=== PATIENT | female | born 1990 | race Caucasian/White ===

== ENCOUNTER 2017-08-09 22:22 | Inpatient (IN) | payer MEDICAID ==
[~2017-08-09] VITALS: Ht 175.3 cm; Wt 53.8 kg
[~2017-08-09 22:22] MED LIST: ACYCLOVIR800 MG PO; AMOXICILLIN 50500 MG PO; AMOXIL500 MG PO; CELEXA10 MG PO; CIPRO 250MG TA250 MG PO; CIPROFLOXACIN500 MG PO; CLONIDINE 0.2M0.2 MG PO; KEFLEX 500MG.500 MG PO; LORTAB 5/500 501 TAB PO; LORTAB 500 MG-71 TAB PO; MOTRIN800 MG PO; NOMEDS; PENICILLIN VK500 M1 PO; PERMETHRIN5% TP; PHENERGAN 12.12.5 M1 PO; PHENERGAN 25MG.25 M1 PO; PHENERGAN25 M3 PO; SEPTRA DS 800 M1 TAB PO; TORADOL10 M2 PO; TORADOL10 MG PO; TRAMADOL 50MG T50 MG PO; ULTRAM 50 MG TA50 MG PO; ULTRAM50 MG PO; VISTARIL25 M1 PO; VOLTAREN75 MG PO
[2017-08-09 22:26] VITALS: BP 119/54
--- NOTE | 2017-08-09 22:43 | Emergency Room Report ---
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 N Clinical Suspician of Infection? N Mental Status: 1 - Regular (Normal Baseline) Sepsis Risk:Low Sepsis Risk Have you (or family members/close friends) recently traveled outside the [place]? N If Yes, where/when: Have you had exposure to infectious disease within the past month? N TB? Other? Specify: Source patient, RN notes reviewed, family, old records Exam Limitations no limitations Comment rt sided buttock abscess which has progressed over the last few days despite po clindamycin at home- old rx -denied prev mrsa but does use iv drugs - denied dm Cardiac Chest Pain Chest pain indicative of cardiac No Timing/Duration this evening Severity moderate ALLERGIES Coded Allergies: No Known Allergies (10/02/15) Home Medications Reported Medications No Known Home Medications History Medical History General CAD? No Angina: No SC: No Hypertension? No Hyperlipidemia? No CHF? No DVT? No PE? No COPD? No Asthma? No Anemia? No GERD? No Gastric ulcers? No GI Bleed? No Hernia? No Thyroid Problems? No Hypothyroidism? No CVA? No Seizures? No Diabetes? No Renal Insuffiency? No End Stage Renal Disease? No UTI? No Stones? No BPH? No GB Disease: No Nephritic Syndrome? No Asplenia? No Hepatitis? No Sickle Cell Disease? No Arthritis? No Migraines? No Cataracts? No Glaucoma? No MRSA? No HIV? No TB? No Anxiety? Yes Depression? Yes Cancer? No More? 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 Respiratory denies cough, denies shortness of breath, denies wheezing Cardiovascular denies chest pain, denies syncope Gastrointestinal see HPI, denies diarrhea, nausea, denies vomiting Genitourinary denies: dysuria, frequency, hesitancy, hematuria. Musculoskeletal denies back pain, denies joint pain, denies joint swelling, denies neck pain Skin see HPI, denies rash, other Psychiatric/Neurological denies anxiety Physical Exam Vital Signs Vital Signs Date Time Temp Pulse Resp B/P Pulse O2 O2 Flow FiO2 Ox Delivery Rate 08/09 2226 98.2 76 16 119/54 98 - WBC >12,000 or <4,000 or 10% bands? 2 or more SIRS Criteria Met? B/P:119/54 MAP:75 Creatinine >2.0? UA output<0.5ml/kg/hr for 2 hrs? Platelet count >100,000? Lactate >2.0mmol/1? INR >1.2 or PTT > than 60 sec? Evidence of Organ Dysfunction? Provider documented clinical suspician of infection? N Sepsis Criteria Count: 0 Sepsis Risk: Low Sepsis Risk General Appearance no apparent distress Eye Exam - bilateral eye PERRL, bilateral eye EOMI Ear, Nose, Throat normal ENT inspection Neck supple Respiratory Status No: respiratory distress. Lung Sounds bilateral: lungs clear. 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 No Results/Orders Laboratory Tests 08/09/172234: Lactic Acid Pending, WBC 9.4, RBC 4.21, Hgb 13.3, Hct 39.4, MCV 93.5, RDW 15.1, Plt Count 224, Gran % 70.5, Gran # 6.6, Lymphocytes % 24.1, Monocytes % 5.4, Lymphocytes # 2.3, Monocytes # 0.5, PUBS MCHC 33.8 08/09/172234: Sodium Pending, Potassium Pending, Chloride Pending, Carbon Dioxide Pending, BUN Pending, Creatinine Pending, Estimated Creat Clear Pending, Estimated GFR (MDRD) Pending, Glucose Pending, Calcium Pending, Total Bilirubin Pending, AST Pending, ALT Pending, Alkaline Phosphatase Pending, Total Protein Pending, Albumin Pending, Globulin Pending, Albumin/Globulin Ratio Pending, ESR Pending, MCH 31.6 H, Opiates Screen Pending, Urine Methadone Screen Pending, Barbiturates Pending , Phencyclidine Screen Pending, Amphetamines Screen Pending, Benzodiazepines Screen Pending, Cocaine Screen Pending, Marijuana (THC) Screen Pending, Urine Color Pending, Urine Appearance Pending, Urine pH Pending, Ur Specific [place] Pending Current Medication Orders Sig/Tameka Start time Last Medication Dose Route Stop Time Status Admin Ketorolac 30 MG ONCE ONE 08/09 2300 DC Tromethamine IV 08/09 230 Miscellaneous 1 EACH CONSULT PHARMACY 08/09 230 AC Information * 08/10 1050 Sodium Chloride 1,000 ML .Q4H 08/09 2300 AC IV 08/10 0259 Sodium Chloride 10 ML PRN PRN 08/09 2300 AC IV 08/10 2250 Vancomycin HCl 1,250 MG ONCE ONE 08/09 2300 CKDr Sodium Chloride 250 ML IV 08/10 0059 Ketorolac 0 .STK-MED ONE 08/09 2254 DC Tromethamine .ROUTE Sodium Chloride 250 ML .STK-MED ONE 08/09 225 DC IV Sodium Chloride 1,000 ML .STK-MED ONE 08/09 225 DC IV Vancomycin HCl 0 .STK-MED ONE 08/09 225 DC .ROUTE Sodium Chloride 10 ML PRN PRN 08/09 224 AC IV 08/10 223 Orders Procedure Date/time Status URINALYSIS/COMPLETE 08/09 2246 Active URINE 08/09 2246 Active SED RATE 08/09 2246 Active DRUG ABUSE SCREEN (TRIAGE) 08/09 2246 Active C-REACTIVE PROTEIN 08/09 2246 Active CULTURE, WOUND 08/09 2233 Active IV SALINE LOCK 08/09 2232 Active CULTURE, BLOOD 08/09 2232 Active LACTIC ACID 08/09 2232 Active CBC WITH AUTO DIFF 08/09 2232 Complete CHEM 12 PROFILE 08/09 2232 Active Departure Departure Time of Disposition 2241 Disposition Still a Patient Clinical Impression Primary Impression: Abscess of buttock, right Secondary Impressions: Heroin use Condition STABLE Referrals Shanita PASCUAL,Jt discussed with dr devlin Prescriptions Current Visit Scripts No Known Home Medications ED Critical Care Critical Care No at 2304
[2017-08-09 23:00] LABS: HEMOGLOBIN 13.3 g/dL (12.2-16.2); LYMPH % 24.1 % (10-50.0)
[2017-08-09 23:01] LABS: LYMPH # 2.3 K/mm3 (0.7-4.5)
[2017-08-09 23:05] LABS: URINE BILIRUBIN - DIPSTICK NEGATIVE (NEG); URINE BLOOD NEGATIVE (NEG)
[2017-08-09 23:25] LABS: AMPHETAMINES/METAMPHETAMINES NEGATIVE ng/mL (<1000)
[2017-08-09 23:36] VITALS: BP 116/64; BP 128/79
[2017-08-10] VITALS (17 sets, daily range): BP systolic 98–134; BP diastolic 46–106
[2017-08-10 06:38] LABS: HEMOGLOBIN 13.1 g/dL (12.2-16.2)
[2017-08-10 06:39] LABS: LYMPH # 2.4 K/mm3 (0.7-4.5); LYMPH % 35.3 % (10-50.0)
--- NOTE | 2017-08-10 08:12 | PHARMACY CLINIC NOTE ---
Patient Demographics Patient Demographics Admission date: 08/09/17 Date: 08/10/17 Time: 0811 Allergies Coded Allergies: No Known Allergies (10/02/15) HEIGHT- FT: 5 IN: 9.00 K.779 VTE General Information Labs: Laboratory Tests 08/10 08/09 0615 2235 Hematology Hgb (12.2 - 16.2 g/dL) 13.1 13.3 Hct (37.0 - 47.0 %) 38.8 39.4 Plt Count (142 - 424 K/mm3) 226 224 Disclaimer The following section includes nursing documentation that has been pulled in for pharmacy review. Patient's VTE score: 0 Patient's VTE Risk: VERY LOW RISK Clinical trial participant? No VTE prophylaxis [id number] VTE prophylaxis ordered? Yes Type of prophylaxis/treatment: BRIDGER at 0811
--- NOTE | 2017-08-10 08:58 | CONSULT NOTE ---
Standard Demographics Patient Demo Date of Consultation: 08/10/17 Referring Provider: Jt Diehl MD Reason for Consultation: abscess PRIMARY DIAGNOSIS: ABSCESS OF RIGHT BUTTOCK Allergies: Coded Allergies: No Known Allergies (10/02/15) History of Present Illness Chief Complaint: Sore place on the RIGHT buttock History of Present Illness: 27-year-old white female. Admitted history of IV drug use and methamphetamine use. Presented to the emergency department yesterday evening with a one-week history of swelling tender knot in the upper RIGHT gluteal region. Admitted for inpatient management and surgical consultation. Past Medical History Denies: diabetes mellitus. Surgical History Previous Surgery?Y WISDOM TEETH Allergies Coded Allergies: No Known Allergies (10/02/15) Medications: Reported Medications No Known Home Medications Smoking Hx Tobacco: Yes Smoker: Current Every Day Smoker Type: Cigarettes Packs/day: < 1 Pack Are you/the child exposed to second-hand smoke: Yes Alcohol Alcohol: No Hx of Drug Use Drug Use? Yes Drug(s) of Choice: heroin Review of Systems Constitutional Positive for: weak. No: chills. Skin Positive for: swelling. Immune/allergy No: anaphalaxis. Eyes No: vision loss. ENT No: hearing loss. Respiratory No: shortness of air. Cardiovascular No: chest pain. GI No: hematemeis. (female) No: pelvic pain. Musculoskeletal No: extremity swelling. Heme No: bleeding. Endocrine No: cold intolerance. Neurological No: change in LOC. Physical Exam Exam General appearance no acute distress Respiratory clear to auscultation Cardiovascular regular rate and rhythm Findings/Data On the RIGHT gluteal region superiorly to the RIGHT of the cleft there is some excoriated superficial tissue. No fluctuance. Erythema for several centimeters. However palpation revealed a rather large area of induration. This is quite tender. Plan Plan: She has soft tissue infection of the RIGHT gluteal region with probable abscess. No evidence of any pilonidal disease. Plan for incision and drainage. at 0899
--- NOTE | 2017-08-10 09:12 | HISTORY AND PHYSICAL REPORT ---
History and Physical (FCA) Date of admission: 08/09/17 Chief complaint: Right Buttock Abscess History: History of Present Illness: Ms. Díaz is a 27yo WF with history of IVDA. She presented to the [facility] ED after several days of right buttock pain, redness, and swelling. She was unsure if she had run a fever in days prior. She reported that she had "popped" the area a few days ago with some subsequent drainage. She also reported that she had been taking an old rx of clindamycin at home without improvement. A friend who accompanied the patient also noted that she has experienced significant weight loss over the past few weeks. The case was discussed with Dr. Diehl and she was admitted for IV antibiotics. Past Medical History: Medical History: CAD? No Angina: No ID: No Hypertension? No Hyperlipidemia? No CHF? No DVT? No PE? No COPD? No Asthma? No Anemia? No GERD? No Gastric ulcers? No GI Bleed? No Hernia? No Thyroid Problems? No Hypothyroidism? No CVA? No Seizures? No Diabetes? No Renal Insuffiency? No UTI? No Stones? No BPH? No GB Disease: No Nephritic Syndrome? No Asplenia? No Hepatitis? No Sickle Cell Disease? No Arthritis? No Migraines? No Cataracts? No Glaucoma? No MRSA? No HIV? No TB? No Anxiety? Yes Depression? Yes Cancer? No More? No Additional hx: IV drug abuse Heroin use Surgical history: Previous Surgery? 1. WISDOM TEETH Medications: Reported Medications No Known Home Medications Allergies: Coded Allergies: No Known Allergies (10/02/15) Family History: Family history: Negative for: CAD, DM, HTN, cancer, stroke. Social History: Smoking Hx Tobacco: Yes Smoker: Current Every Day Smoker Type: Cigarettes Packs/day: < 1 Pack Are you exposed to second hand Yes Alcohol: Alcohol: No Hx of Drug Use: Drug Use? Yes Drug(s) of Choice: heroin Patien't marital status is: single Patient's support system is: poor Patient's occupation: unemployed Recent travel: none Review of Systems: Patient unresponsive? No Constitutional Positive for: recent weight loss. No: chills, malaise. ENT No: nasal congestion, sore throat. Cardiovascular No: HOLLIDAY, chest pain, palpitations. Respiratory No: dyspnea on exertion, shortness of air, non-productive, productive cough ( sputum). GI Positive for: rectal pain (right buttock). No: abdominal pain, constipation, diarrhea, nausea, vomitting. (female) No: frequency, hematuria, pelvic pain, urgency. Skin Positive for: swelling. No: bruising, itching. Neurological No: confusion, dizziness, syncope, vision change. Immune/allergy No: itching. Eyes No: blurry vision, discharge, vision loss. Musculoskeletal No: extremity pain, extremity swelling, myalgias. Heme No: bleeding, bruising. Psychiatric No: confused, change in mental status. Physical Exam: Vital signs: Laboratory Tests 08/10/17 0615: Sodium 138, Potassium 3.2 L, Chloride 107, Carbon Dioxide 25, BUN 6 L, Creatinine 0.6, Estimated Creat Clear 120, Estimated GFR (MDRD) 120, Glucose 98, Calcium 8.6, WBC 6.8, RBC 4.14 L, Hgb 13.1, Hct 38.8, MCV 93.7, RDW 14.5, Plt Count 226, Gran % 58.1, Gran # 4.0, Lymphocytes % 35.3, Monocytes % 6.6, Lymphocytes # 2.4, Monocytes # 0.4, PUBS MCHC 33.8, MCH 31.6 H 08/09/172234: Lactic Acid 0.6, WBC 9.4, RBC 4.21, Hgb 13.3, Hct 39.4, MCV 93.5, RDW 15.1, Plt Count 224, Gran % 70.5, Gran # 6.6, Lymphocytes % 24.1, Monocytes % 5.4, Lymphocytes # 2.3, Monocytes # 0.5, PUBS MCHC 33.8 08/09/172234: Sodium 134 L, Potassium 3.3 L, Chloride 101, Carbon Dioxide 27, BUN 5 L, Creatinine 0.7, Estimated Creat Clear 112, Estimated GFR (MDRD) 100, Glucose 82, Calcium 8.9, Total Bilirubin 0.6, AST 27, ALT 36, Alkaline Phosphatase 79, Total Protein 7.3, Albumin 3.3 L, Globulin 4.0 H, Albumin/Globulin Ratio 0.8 L, ESR 37 H, MCH 31.6 H, Opiates Screen NEGATIVE, Urine Methadone Screen NEGATIVE, Barbiturates NEGATIVE, Phencyclidine Screen NEGATIVE, Amphetamines Screen NEGATIVE, Benzodiazepines Screen NEGATIVE, Cocaine Screen NEGATIVE, Marijuana ( THC) Screen POSITIVE H, Urine Color YELLOW, Urine Appearance CLEAR, Urine pH 7.0, Ur Specific [place] <= 1.005, Urine Protein NEGATIVE, Urine Ketones NEGATIVE, Urine Blood NEGATIVE, Urine Nitrate NEGATIVE, Urine Bilirubin NEGATIVE , Urine Urobilinogen 0.2, Ur Leukocyte Esterase NEGATIVE, Urine WBC 3-5, Ur Squamous Epith Cells 5-10, Urine Bacteria 1+, Urine Glucose NEGATIVE Microbiology 08/09 2235 BLOOD: Anaerobic Blood Culture - RECD 08/09 2235 BLOOD: Aerobic Blood Culture - RECD 08/09 2232 DRAINAGE: Wound Culture - RECD 08/09 2232 BLOOD: Anaerobic Blood Culture - CAN Cancelled: DO NOT NEED PER MD 08/09 2232 BLOOD: Aerobic Blood Culture - CAN Cancelled: DO NOT NEED PER MD Vital Signs Date Time Temp Pulse Resp B/P Pulse O2 O2 Flow FiO2 Ox Delivery Rate 08/10 0828 20 08/10 0818 97.8 90 20 120/53 99 ROOM AIR 08/10 0800 97.8 51 20 120/53 99 ROOM AIR 08/10 0438 74 20 107/46 100 ROOM AIR 08/10 0205 98.5 96 22 128/79 100 ROOM AIR 08/10 0121 16 08/09 2336 70 08/09 233 98.5 96 16 128/79 08/09 2336 98 ROOM AIR 08/09 2334 98.2 70 16 116/64 98 08/09 2309 16 08/09 222 98.2 76 16 119/54 98 1ST Vital Signs Result Date Time Pulse Ox 98 08/09 2226 B/P 119/54 08/09 2226 Temp 98.2 08/09 222 Pulse 76 08/09 222 Resp 16 08/09 2226 O2 Delivery ROOM AIR 08/09 2336 Exam: General appearance: no acute distress, arouses to voice, answers questions appropriately, drifts back to sleep quickly Eyes: anicteric, PERRLA ENT: mucous membranes moist, pharynx normal, nares patent Neck: non-tender, supple, no LAD Cardiovascular: regular rate & rhythm, normal peripheral pulses Respiratory: CTAB A&P ABD: non-distended, no rebound, soft, no tenderness, no guarding, no organomegaly, no palpable mass, bowel sounds present Extremities: moves all, no peripheral edema, warm, no calf tenderness Skin: 2-3 cm area of erythema and induration with central scabbing on right buttock at superior aspect of gluteal cleft which is warm and ttp Neuro: oriented, speech clear, no focal deficit Lab data: Labs: Laboratory Tests 08/10/1715: Sodium 138, Potassium 3.2 L, Chloride 107, Carbon Dioxide 25, BUN 6 L, Creatinine 0.6, Estimated Creat Clear 120, Estimated GFR (MDRD) 120, Glucose 98, Calcium 8.6, WBC 6.8, RBC 4.14 L, Hgb 13.1, Hct 38.8, MCV 93.7, RDW 14.5, Plt Count 226, Gran % 58.1, Gran # 4.0, Lymphocytes % 35.3, Monocytes % 6.6, Lymphocytes # 2.4, Monocytes # 0.4, PUBS MCHC 33.8, MCH 31.6 H 08/09/172234: Lactic Acid 0.6, WBC 9.4, RBC 4.21, Hgb 13.3, Hct 39.4, MCV 93.5, RDW 15.1, Plt Count 224, Gran % 70.5, Gran # 6.6, Lymphocytes % 24.1, Monocytes % 5.4, Lymphocytes # 2.3, Monocytes # 0.5, PUBS MCHC 33.8 08/09/172234: Sodium 134 L, Potassium 3.3 L, Chloride 101, Carbon Dioxide 27, BUN 5 L, Creatinine 0.7, Estimated Creat Clear 112, Estimated GFR (MDRD) 100, Glucose 82, Calcium 8.9, Total Bilirubin 0.6, AST 27, ALT 36, Alkaline Phosphatase 79, Total Protein 7.3, Albumin 3.3 L, Globulin 4.0 H, Albumin/Globulin Ratio 0.8 L, ESR 37 H, MCH 31.6 H, Opiates Screen NEGATIVE, Urine Methadone Screen NEGATIVE, Barbiturates NEGATIVE, Phencyclidine Screen NEGATIVE, Amphetamines Screen NEGATIVE, Benzodiazepines Screen NEGATIVE, Cocaine Screen NEGATIVE, Marijuana ( THC) Screen POSITIVE H, Urine Color YELLOW, Urine Appearance CLEAR, Urine pH 7.0, Ur Specific [place] <= 1.005, Urine Protein NEGATIVE, Urine Ketones NEGATIVE, Urine Blood NEGATIVE, Urine Nitrate NEGATIVE, Urine Bilirubin NEGATIVE , Urine Urobilinogen 0.2, Ur Leukocyte Esterase NEGATIVE, Urine WBC 3-5, Ur Squamous Epith Cells 5-10, Urine Bacteria 1+, Urine Glucose NEGATIVE Microbiology 08/09 2235 BLOOD: Anaerobic Blood Culture - RECD 08/09 2235 BLOOD: Aerobic Blood Culture - RECD 08/09 2232 DRAINAGE: Wound Culture - RECD 08/09 2232 BLOOD: Anaerobic Blood Culture - CAN Cancelled: DO NOT NEED PER MD 08/09 2232 BLOOD: Aerobic Blood Culture - CAN Cancelled: DO NOT NEED PER MD Diagnosis(es): 1. Abscess of buttock, right Status: Acute 2. Substance abuse 3. IV drug abuse 4. Heroin use 5. Underweight Plan: Will continue IV vancomycin, check HIV and Hepatitis panel, consult SW to provide drug treatment information. (KATHERINE BUSTILLO APRN) Diagnosis(es): 1. Abscess of buttock, right Status: Acute 2. Substance abuse 3. IV drug abuse 4. Heroin use 5. Underweight Plan: Patient seen and agree with above note. I&D planned for today. (Jt Diehl MD) at 0911 at 1118
--- NOTE | 2017-08-10 09:59 | CONSULT NOTE ---
Pharmacokinetic Consult Date of consult: 08/10/17 Time of consult: 957 Referring provider: DR. SALAZAR Reason for consult: VANCOMYCIN DOSING Allergies: Coded Allergies: No Known Allergies (10/02/15) Home Medications: Reported Medications No Known Home Medications Height (feet): 5 Height (inches): 9.00 Medical History: CAD? No Angina: No [place]: No Hypertension? No Hyperlipidemia? No CHF? No DVT? No PE? No COPD? No Asthma? No Anemia? No GERD? No Gastric ulcers? No GI Bleed? No Hernia? No Thyroid Problems? No Hypothyroidism? No CVA? No Seizures? No Diabetes? No Renal Insuffiency? No UTI? No Stones? No BPH? No GB Disease: No Nephritic Syndrome? No Asplenia? No Hepatitis? No Sickle Cell Disease? No Arthritis? No Migraines? No Cataracts? No Glaucoma? No MRSA? No HIV? No TB? No Anxiety? Yes Depression? Yes Cancer? No More? No Additional hx: IV drug abuse Heroin use Labs: Laboratory Tests 08/10/1715: Sodium 138, Potassium 3.2 L, Chloride 107, Carbon Dioxide 25, BUN 6 L, Creatinine 0.6, Estimated Creat Clear 120, Estimated GFR (MDRD) 120, Glucose 98, Calcium 8.6, WBC 6.8, RBC 4.14 L, Hgb 13.1, Hct 38.8, MCV 93.7, RDW 14.5, Plt Count 226, Gran % 58.1, Gran # 4.0, Lymphocytes % 35.3, Monocytes % 6.6, Lymphocytes # 2.4, Monocytes # 0.4, PUBS MCHC 33.8, MCH 31.6 H 08/09/172234: Lactic Acid 0.6, WBC 9.4, RBC 4.21, Hgb 13.3, Hct 39.4, MCV 93.5, RDW 15.1, Plt Count 224, Gran % 70.5, Gran # 6.6, Lymphocytes % 24.1, Monocytes % 5.4, Lymphocytes # 2.3, Monocytes # 0.5, PUBS MCHC 33.8 08/09/172234: Sodium 134 L, Potassium 3.3 L, Chloride 101, Carbon Dioxide 27, BUN 5 L, Creatinine 0.7, Estimated Creat Clear 112, Estimated GFR (MDRD) 100, Glucose 82, Calcium 8.9, Total Bilirubin 0.6, AST 27, ALT 36, Alkaline Phosphatase 79, Total Protein 7.3, Albumin 3.3 L, Globulin 4.0 H, Albumin/Globulin Ratio 0.8 L, ESR 37 H, MCH 31.6 H, Opiates Screen NEGATIVE, Urine Methadone Screen NEGATIVE, Barbiturates NEGATIVE, Phencyclidine Screen NEGATIVE, Amphetamines Screen NEGATIVE, Benzodiazepines Screen NEGATIVE, Cocaine Screen NEGATIVE, Marijuana ( THC) Screen POSITIVE H, Urine Color YELLOW, Urine Appearance CLEAR, Urine pH 7.0, Ur Specific [place] <= 1.005, Urine Protein NEGATIVE, Urine Ketones NEGATIVE, Urine Blood NEGATIVE, Urine Nitrate NEGATIVE, Urine Bilirubin NEGATIVE , Urine Urobilinogen 0.2, Ur Leukocyte Esterase NEGATIVE, Urine WBC 3-5, Ur Squamous Epith Cells 5-10, Urine Bacteria 1+, Urine Glucose NEGATIVE Microbiology 08/09 2235 BLOOD: Anaerobic Blood Culture - RECD 08/09 2235 BLOOD: Aerobic Blood Culture - RECD 08/09 2232 DRAINAGE: Wound Culture - RECD 08/09 2232 BLOOD: Anaerobic Blood Culture - CAN Cancelled: DO NOT NEED PER MD 08/09 2232 BLOOD: Aerobic Blood Culture - CAN Cancelled: DO NOT NEED PER MD Problem List: 1. Abscess of buttock, right Acute Plan: BASED ON PATIENT'S FACTORS, RECOMMEND STARTING WITH VANCOMYCIN 1000 MG Q12H AT THIS TIME. PHARMACY WILL FOLLOW DAILY AND ADJUST APPROPRIATE. MALIK PORTILLO PHARMD at 0959
--- NOTE | 2017-08-10 15:52 | Operative Note ---
Surgeon/Diagnoses Surgeon/Extrusion Press Adjuster(s) Date of procedure: 08/10/17 Surgeon: Paul Riley Diagnoses Pre-op diagnosis: Soft tissue infection with abscess of the RIGHT gluteal area Post-op diagnosis Same Procedure Procedure Procedure: Incision and drainage of RIGHT gluteal abscess with debridement of skin and subcutaneous tissue Indications: ANITA GARCIA is a 27 year-old Female with a history of Findings: No well-circumscribed abscess. Findings consistent with suppurative focal necrotizing cellulitis possibly secondary to sebaceous cyst. Procedure Description: Consent was obtained and patient was taken to the operating room. Gen. anesthesia was induced. She was positioned in a lateral position. The area was prepped and draped in a standard surgical fashion. There was overlying focal area of necrotic skin which was draining some pus. 18-gauge needle was inserted in an attempt to aspirate pus. This was unsuccessful. Small limited incision was made at the area draining purulent liquid. There was some pus which exuded from the wound but this was relatively minimal and there was no well circumscribed abscess cavity. Fluid was sent for culture. Wound was probed vigorously. There was some underlying focal necrotic tissue and some debris. Deeper devitalized tissue was debrided using electrocautery. Overlying devitalized tissue was debrided with electrocautery. Overall size of the wound measured about 3 cm longitudinally. Wound was thoroughly irrigated. Hemostasis was achieved with electrocautery. Local anesthetic was infiltrated. Wound was packed with moistened saline gauze and covered with clean dry sterile dressing. EBL (ml): 10 Anesthesia: Gen. Specimens: Cultures sent. Debrided tissue sent. Disposition Disposition: To PACU at 1557
--- NOTE | 2017-08-10 15:59 | Anesthesia Record ---
Anesthesia Record Part II Discharge time: 1625 Destination: Second Floor PACU nurse assessment review? Yes Patient is: Awake, Stable Anesthesia complications? No at [id number]
--- NOTE | 2017-08-10 15:59 | Anesthesia Record ---
Anesthesia Record Part I Total IV fluids: 500 EBL (ml): 0 Urine Output: 0 B/P: 112/79 % SaO2: 100 Pulse: 72 Resps: 12 Temp: 97.3 Patient is: Awake, Stable Stable to PACU at: 1555 at 1551
[2017-08-11 04:00] VITALS: BP 117/63
[2017-08-11 08:12] VITALS: BP 110/72
[2017-08-11 08:40] LABS: HIV Screen 4th Generation wRfx Non Reactive (Non Reactive)
--- NOTE | 2017-08-11 08:44 | ACUTE CARE PROGRESS NOTE (QUA) ---
Progress Notes Subjective Date 08/11/17 Time 0838 Note She is nauseated and vomiting this morning and in pain. She vomits several times when I am present. Abdomen is soft with hyperactive bowel sounds. Medications are reviewed and adjusted this morning. Objective Findings Laboratory Tests 08/11/17 0735: Vancomycin Trough 5.9 L Microbiology 08/10 1527 BUTTOCK: Abscess Culture - RES Last VS-Temp:97.8 B/P:110/72 Pulse:77 Resp:18 SaO2:100 ROOM AIR Last weight lbs:118 oz:9 K.779 Method:Bed Scales Exam General appearance: vomiting Eyes: PERRLA ENT: mucous membranes moist Cardiovascular: regular rate & rhythm Respiratory: diminished breath sounds ABD: soft, abnormal bowel sounds (hyperactive) Genitourinary: drainage (states that she has had recent) Extremities: no peripheral edema Skin: dry, intact Neuro: no deficit, oriented, speech clear Reviewed: medications, vital signs, lab results Assessment/Plan Problem List 1. Abscess of buttock, right Status: Acute 2. Substance abuse 3. IV drug abuse 4. Heroin use 5. Underweight 6. Vomiting 7. Hypokalemia Patient condition Guarded Plan: make medication changes, recheck electrolytes, supplement potassium This inpt stay is expected to cross 2 MNs from start of care Yes at 0844
[2017-08-11 09:37] LABS: HBsAg Screen Negative (Negative); Hep A Ab, IgM Negative (Negative); Hep B Core Ab, IgM Negative (Negative); Hep C Virus Ab >11.0 (0.0-0.9)
--- NOTE | 2017-08-11 10:16 | SURGEON PROGRESS NOTE ---
Subjective data Subjective data: ANITA GARCIA is a 27 F .Patient denies complaint of nausea and vomitting.She reports her last pain level as 7 on a 0-10 pain scale. c/o pain. Assessment findings Assessment Exam General appearance: normal appearance, alert Comment: Wound clean with decreased erythema. Patient plan Plan: Antibiotics, Dressings at 1015
[2017-08-11 12:26] VITALS: BP 132/63
--- NOTE | 2017-08-11 13:44 | CONSULT NOTE ---
See Addendum Pharmacokinetic Consult Date of consult: 08/11/17 Time of consult: 1341 Referring provider: DR. GRACE Reason for consult: VANCOMYCIN LEVEL AND DOSE CHANGE Allergies: Coded Allergies: No Known Allergies (08/10/17) Home Medications: Reported Medications No Known Home Medications Height (feet): 5 Height (inches): 9.00 Medical History: CAD? No Angina: No [place]: No Hypertension? No Hyperlipidemia? No CHF? No DVT? No PE? No COPD? No Asthma? No Anemia? No GERD? No Gastric ulcers? No GI Bleed? No Hernia? No Thyroid Problems? No Hypothyroidism? No CVA? No Seizures? No Diabetes? No Renal Insuffiency? No UTI? No Stones? No BPH? No GB Disease: No Nephritic Syndrome? No Asplenia? No Hepatitis? No Sickle Cell Disease? No Arthritis? No Migraines? No Cataracts? No Glaucoma? No MRSA? No HIV? No TB? No Anxiety? Yes Depression? Yes Cancer? No More? No Additional hx: IV drug abuse Heroin use Labs: Laboratory Tests 08/11/17 0735: Sodium 139, Potassium 3.7, Chloride 109 H, Carbon Dioxide 23, BUN 5 L, Creatinine 0.6, Estimated Creat Clear 120, Estimated GFR (MDRD) 120, Glucose 104 , Calcium 7.9 L, Vancomycin Trough 5.9 L Microbiology 08/10 1527 BUTTOCK: Abscess Culture - RES Problem List: 1. Abscess of buttock, right Acute Plan: BASED ON PATIENT'S VANCOMYCIN TROUGH LEVEL OF 5.9 MCG/ML THIS AM, RECOMMEND CHANGING DOSE TO VANCOMYCIN 1 GM Q8H AT THIS TIME. PHARMACY WILL FOLLOW DAILY AND ADJUST APPROPRIATE. MALIK PORTILLO PHARMD at 0277
[2017-08-11 16:00] VITALS: BP 106/65
[2017-08-11 19:48] VITALS: BP 158/71
[2017-08-11 21:15] VITALS: BP 158/71
[2017-08-12 04:30] VITALS: BP 109/57
[2017-08-12 08:00] VITALS: BP 115/66
[2017-08-12 09:02] VITALS: BP 115/66
--- NOTE | 2017-08-12 09:26 | SURGEON PROGRESS NOTE ---
See Addendum Subjective data Subjective data: ANITA GARCIA is a 27 F .Patient denies complaint of nausea and vomitting.She reports her last pain level as 10 on a 0-10 pain scale. Patient reportedly still having significant pain. Assessment findings Assessment Exam General appearance: normal appearance, alert Comment: Patient examined with dressing completely off. Patient in no acute distress. Wound is clean without erythema. No evidence of any granulation tissue as of yet. No ongoing necrosis. Patient plan Plan: Antibiotics Additional data: Wound swab culture from the emergency department on admission reveals MRSA. Operative cultures still pending. Continue vancomycin and wound care. Discharge planning. at 0992
--- NOTE | 2017-08-12 10:06 | ACUTE CARE PROGRESS NOTE (QUA) ---
Progress Notes Subjective Date 08/12/17 Time 1001 Note I received no calls from nursing yesterday but the patient and her friend state that she has been in continuous severe pain. She continues to ask for more medication. I discussed with them the difficulties in assessing her due to her heroin addiction. Yesterday I added scheduled Phenergan and scheduled oxazepam. I will increase the oxazepam increase the morphine to 3 mg every 2 hours when necessary. Objective Findings Laboratory Tests 08/12/17 0828: Vancomycin Trough 10.1 Last VS-Temp:98.6 B/P:115/66 Pulse:68 Resp:18 SaO2:99 ROOM AIR Last weight lbs:118 oz:9 K.779 Method:Bed Scales Exam General appearance: she is lying in bed with her hoodie covering her face. ENT: mucous membranes moist Cardiovascular: regular rate & rhythm Respiratory: good air movement, no respiratory distress ABD: normal bowel sounds, soft Extremities: no peripheral edema Skin: dry, intact, dressing in place (she has been seen by Dr. Riley) Assessment/Plan Problem List 1. Abscess of buttock, right Status: Acute 2. Substance abuse 3. IV drug abuse 4. Heroin use 5. Underweight 6. Vomiting 7. Hypokalemia Plan: make medication changes This inpt stay is expected to cross 2 MNs from start of care Yes at 1005
--- NOTE | 2017-08-12 10:13 | CONSULT NOTE ---
Pharmacokinetic Consult Date of consult: 08/12/17 Time of consult: 1009 Referring provider: DR. SALAZAR Reason for consult: VANCOMYCIN TROUGH LEVEL Allergies: Coded Allergies: No Known Allergies (08/10/17) Home Medications: Reported Medications No Known Home Medications Height (feet): 5 Height (inches): 9.00 Medical History: CAD? No Angina: No [place]: No Hypertension? No Hyperlipidemia? No CHF? No DVT? No PE? No COPD? No Asthma? No Anemia? No GERD? No Gastric ulcers? No GI Bleed? No Hernia? No Thyroid Problems? No Hypothyroidism? No CVA? No Seizures? No Diabetes? No Renal Insuffiency? No UTI? No Stones? No BPH? No GB Disease: No Nephritic Syndrome? No Asplenia? No Hepatitis? No Sickle Cell Disease? No Arthritis? No Migraines? No Cataracts? No Glaucoma? No MRSA? No HIV? No TB? No Anxiety? Yes Depression? Yes Cancer? No More? No Additional hx: IV drug abuse Heroin use Labs: Laboratory Tests 08/12/17 0828: Vancomycin Trough 10.1 Problem List: 1. Abscess of buttock, right Acute Plan: BASED ON PATIENT'S TROUGH LEVEL OF 10.1 MCG/ML, RECOMMEND CONTINUING WITH CURRENT DOSE OF VANCOMYCIN 1000 MG Q8H AT THIS TIME. PHARMACY WILL FOLLOW DAILY AND ADJUST APPROPRIATE. MALIK PORTILLO PHARMD at 1013
[2017-08-12 16:00] VITALS: BP 117/69
[2017-08-12 19:48] VITALS: BP 117/69
[2017-08-12 21:13] VITALS: BP 97/56
[2017-08-13 03:41] VITALS: BP 103/70
[2017-08-13 07:44] VITALS: BP 103/70
[2017-08-13 07:48] VITALS: BP 118/65; BP 134/78
--- NOTE | 2017-08-13 07:56 | ACUTE CARE PROGRESS NOTE (QUA) ---
Progress Notes Subjective Date 08/13/17 Time 0725 Note Patient denies CP and SOB; pin at wound site; has not vomited this AM. States she is eating. voiding QS; states she slept and went outside a couple of times yesterday. Has required pain med as ordered. asking for pain med now Nursing reports: pain, has been outside frequently; girlfriend seems to be high when she returns to the room Objective Findings Laboratory Tests 08/12/17 0828: Vancomycin Trough 10.1 Vital Signs Date Time Temp Pulse Resp B/P Pulse O2 O2 Flow FiO2 Ox Delivery Rate 08/13 0748 98.1 65 14 134/78 95 ROOM AIR 08/13 0744 98.3 59 16 103/70 100 08/13 0739 16 08/13 0341 98.3 59 16 103/70 100 ROOM AIR 08/12 2304 16 08/12 2113 98.7 78 16 97/56 99 ROOM AIR 08/12 2000 18 08/12 1948 98.4 86 18 117/69 100 08/12 1737 18 08/12 1600 98.4 86 18 117/69 100 ROOM AIR 08/12 1434 18 08/12 1111 18 08/12 0902 98.6 68 18 115/66 99 10 0853 18 10 0800 98.6 68 18 115/66 99 ROOM AIR Current Medications Morphine Sulfate 0 .STK-MED ONE .ROUTE (DC) Sodium Chloride 25 ML .STK-MED ONE IV (DC) Promethazine HCl 0 .STK-MED ONE .ROUTE (DC) Sodium Chloride 250 ML .STK-MED ONE IV (DC) Vancomycin HCl 0 .STK-MED ONE .ROUTE (DC) Sodium Chloride 25 ML .STK-MED ONE IV (DC) Morphine Sulfate 0 .STK-MED ONE .ROUTE (DC) Promethazine HCl 0 .STK-MED ONE .ROUTE (DC) Oxazepam 0 .STK-MED ONE PO (DC) Morphine Sulfate 0 .STK-MED ONE .ROUTE (DC) Morphine Sulfate 0 .STK-MED ONE .ROUTE (DC) Sodium Chloride 250 ML .STK-MED ONE IV (DC) Vancomycin HCl 0 .STK-MED ONE .ROUTE (DC) Promethazine HCl 0 .STK-MED ONE .ROUTE (DC) Sodium Chloride 25 ML .STK-MED ONE IV (DC) Morphine Sulfate 0 .STK-MED ONE .ROUTE (DC) Oxazepam 0 .STK-MED ONE PO (DC) Metronidazole 500 MG TID PO Oxazepam 15 MG TID PO Promethazine HCl 0 .STK-MED ONE .ROUTE (DC) Sodium Chloride 25 ML .STK-MED ONE IV (DC) Morphine Sulfate 0 .STK-MED ONE .ROUTE (DC) Morphine Sulfate 3 MG Q2HP PRN IV Morphine Sulfate 0 .STK-MED ONE .ROUTE (DC) Oxazepam 0 .STK-MED ONE PO (DC) Promethazine HCl 12.5 MG Q6 IV Oxazepam 10 MG TID PO (DC) Potassium Chloride 10 MEQ TID PO Vancomycin HCl 1,000 MG Q8H IV Sodium Chloride 250 ML Potassium Chloride/Sodium Chloride 1,000 ML .Q8H IV Sodium Chloride 25 ML PRN PRN IV Sodium Chloride 10 ML PRN PRN IV Acetaminophen 650 MG Q4HP PRN PO Influenza Virus Vaccine Quadrival 0.5 ML PRN PRN IM Morphine Sulfate 2 MG Q2HP PRN IV (DC) Nicotine 21 MG DAILYP PRN TD Ondansetron HCl 4 MG Q6HP PRN IV 08/12 1500 10/ 2300 10/ 0700 Intake Total 840 1462 Output Total Balance 840 1462 Intake, IV 742 Intake, Oral 840 720 Last VS-Temp:98.3 B/P:103/70 Pulse:59 Resp:16 SaO2:100 ROOM AIR Last weight lbs:118 oz:9 K.779 Method:Bed Scales ABCESS CULTURE Final 08/13/17 Organism 1 STAPHYLOCOCCUS AUREUS 1. STAPHYLOCOCCUS AUREUS RX AB M.I.C ROUTE COST I ------ -- --------- ----- ------ TRIMETH/SULFAMETH (BACTRIM) S <=10 CLINDAMYCIN S <=0.25 ERYTHROMYCIN R >=8 GENTAMICIN S <=0.5 LEVOFLOXACIN R 0.25 OXACILLIN R >=4 BENZYLPENICILLIN R >=0.5 RIFAMPIN S <=0.5 TETRACYCLINE S <=1 VANCOMYCIN S 1 THIS IS METHICILLIN RESISTANT STAPH AUREUS CALL MRSA RESULTS TO CAREGIVER Exam General appearance: alert, no acute distress Cardiovascular: regular rate & rhythm Respiratory: clear to auscultation (bilat anterior and posterior) ABD: non-distended, soft, no tenderness, no guarding, bowel sounds present Extremities: no peripheral edema Skin: dressing on right buttock clean and dry Neuro: alert, oriented, speech clear Assessment/Plan Problem List 1. Abscess of buttock, right Status: Acute 2. Substance abuse 3. IV drug abuse 4. Heroin use 5. Underweight 6. Vomiting 7. Hypokalemia Patient condition Improved Plan: saline lock now; should go home today on PO ABX This inpt stay is expected to cross 2 MNs from start of care No (Cookie Santamaria APRN) Assessment/Plan Problem List 1. Abscess of buttock, right Status: Acute 2. Substance abuse 3. IV drug abuse 4. Heroin use 5. Underweight 6. Vomiting 7. Hypokalemia Comments: Saw patient this morning, OK to discharge home with oral antibiotics and pain medication for dressing changes. Discussed with patient and her significant other. Discussed Hepatitis C diagnosis. Patient now rememberws she was told she had Hepatitis C about 2 years ago. She is not interested in treatment at this time. (Jt Diehl MD) at 0754 at 0800
--- NOTE | 2017-08-13 08:16 | SURGEON PROGRESS NOTE ---
Subjective data Subjective data: ANITA GARCIA is a 27 F .Patient denies complaint of nausea and vomitting.She reports her last pain level as 0 on a 0-10 pain scale. Patient resting comfortably. Significant other states she has been in less pain. Patient plan Plan: Antibiotics Additional data: Okay for discharge home. May have oral Bactrim and Clindamycin for antibiotic coverage. states she can do dressing changes. at 0815
[2017-08-13] MEDS ORDERED: CLINDAMYCIN HC300 MG PO (08:56)
[2017-08-13] MEDS ORDERED: BACTRIM DS 8001 TA1 PO (08:56)
[2017-08-13] MEDS ORDERED: Oxycodone5 MG PO (08:57)
[2017-08-13 12:01] VITALS: BP 118/65
--- NOTE | 2017-08-14 08:50 | DISCHARGE SUMMARY STANDARD ---
Discharge Summary ([facility]2) Date of admission: 08/09/17 Date of discharge: 08/13/17 Problem List: 1. Abscess of buttock, right 2. Substance abuse 3. IV drug abuse 4. Heroin use 5. Underweight 6. Vomiting 7. Hypokalemia History of present illness: History of Present Illness: Ms. Díaz is a 27yo WF with history of IVDA. She presented to the [facility] ED after several days of right buttock pain, redness, and swelling. She was unsure if she had run a fever in days prior. She reported that she had "popped" the area a few days ago with some subsequent drainage. She also reported that she had been taking an old rx of clindamycin at home without improvement. A friend who accompanied the patient also noted that she had experienced significant weight loss over the past few weeks. The case was discussed with Dr. Diehl and she was admitted for IV antibiotics. Exam on admission: Vital Signs Date Time Temp Pulse Resp B/P Pulse O2 O2 Flow FiO2 Ox Delivery Rate 08/10 0828 20 08/10 0818 97.8 90 20 120/53 99 ROOM AIR 08/10 0800 97.8 51 20 120/53 99 ROOM AIR 08/10 0438 74 20 107/46 100 ROOM AIR 08/10 0205 98.5 96 22 128/79 100 ROOM AIR 08/10 0121 16 08/09 2336 70 08/09 2336 98.5 96 16 128/79 08/09 2336 98 ROOM AIR 08/09 2334 98.2 70 16 116/64 98 08/09 2309 16 08/09 222 98.2 76 16 119/54 98 1ST Vital Signs Result Date Time Pulse Ox 98 08/09 2226 B/P 119/54 08/09 2226 Temp 98.2 08/09 222 Pulse 76 08/09 222 Resp 16 08/09 222 O2 Delivery ROOM AIR 08/09 233 Exam: General appearance: no acute distress, arouses to voice, answers questions appropriately, drifts back to sleep quickly Eyes: anicteric, PERRLA ENT: mucous membranes moist, pharynx normal, nares patent Neck: non-tender, supple, no LAD Cardiovascular: regular rate & rhythm, normal peripheral pulses Respiratory: CTAB A&P ABD: non-distended, no rebound, soft, no tenderness, no guarding, no organomegaly, no palpable mass, bowel sounds present Extremities: moves all, no peripheral edema, warm, no calf tenderness Skin: 2-3 cm area of erythema and induration with central scabbing on right buttock at superior aspect of gluteal cleft which is warm and ttp Neuro: oriented, speech clear, no focal deficit Hospital Course: Patient was started on IV Vanc and flagyl on admission. She did have some nausea and vomiting for which she received phenergan and Zofran. She also received Morphine for her pain. On 08/10/17 she had Incision and drainage of RIGHT gluteal abscess with debridement of skin and subcutaneous tissue by Dr. Riley. After the procedure she had persistent pain and meds were adjusted. Wound was + for MRSA. Oxazepam was added PO. She went outside of the hospital building several times with her friend. On 08/13/17 she continued to have pain with regular pain med. Her wound was healing with daily dressing changes. Dr. Riley felt she was ready for discharge. Her significant other stated she could do the dressing changes at home. She was discharged to home with PO ABX. Laboratory data this visit: 08/10/17 0615: Sodium 138, Potassium 3.2 L, Chloride 107, Carbon Dioxide 25, BUN 6 L, Creatinine 0.6, Estimated Creat Clear 120, Estimated GFR (MDRD) 120, Glucose 98, Calcium 8.6, WBC 6.8, RBC 4.14 L, Hgb 13.1, Hct 38.8, MCV 93.7, RDW 14.5, Plt Count 226, Gran % 58.1, Gran # 4.0, Lymphocytes % 35.3, Monocytes % 6.6, Lymphocytes # 2.4, Monocytes # 0.4, PUBS MCHC 33.8, MCH 31.6 H 08/09/172234: Lactic Acid 0.6, WBC 9.4, RBC 4.21, Hgb 13.3, Hct 39.4, MCV 93.5, RDW 15.1, Plt Count 224, Gran % 70.5, Gran # 6.6, Lymphocytes % 24.1, Monocytes % 5.4, Lymphocytes # 2.3, Monocytes # 0.5, PUBS MCHC 33.8 08/09/172234: Sodium 134 L, Potassium 3.3 L, Chloride 101, Carbon Dioxide 27, BUN 5 L, Creatinine 0.7, Estimated Creat Clear 112, Estimated GFR (MDRD) 100, Glucose 82, Calcium 8.9, Total Bilirubin 0.6, AST 27, ALT 36, Alkaline Phosphatase 79, Total Protein 7.3, Albumin 3.3 L, Globulin 4.0 H, Albumin/Globulin Ratio 0.8 L, ESR 37 H, MCH 31.6 H, Opiates Screen NEGATIVE, Urine Methadone Screen NEGATIVE, Barbiturates NEGATIVE, Phencyclidine Screen NEGATIVE, Amphetamines Screen NEGATIVE, Benzodiazepines Screen NEGATIVE, Cocaine Screen NEGATIVE, Marijuana ( THC) Screen POSITIVE H, Urine Color YELLOW, Urine Appearance CLEAR, Urine pH 7.0, Ur Specific [place] <= 1.005, Urine Protein NEGATIVE, Urine Ketones NEGATIVE, Urine Blood NEGATIVE, Urine Nitrate NEGATIVE, Urine Bilirubin NEGATIVE , Urine Urobilinogen 0.2, Ur Leukocyte Esterase NEGATIVE, Urine WBC 3-5, Ur Squamous Epith Cells 5-10, Urine Bacteria 1+, Urine Glucose NEGATIVE > ABCESS CULTURE Final 08/13/17-611 Organism 1 STAPHYLOCOCCUS AUREUS 1. STAPHYLOCOCCUS AUREUS RX AB M.I.C ROUTE COST I ------ -- --------- ----- ------ TRIMETH/SULFAMETH (BACTRIM) S <=10 CLINDAMYCIN S <=0.25 ERYTHROMYCIN R >=8 GENTAMICIN S <=0.5 LEVOFLOXACIN R 0.25 OXACILLIN R >=4 BENZYLPENICILLIN R >=0.5 RIFAMPIN S <=0.5 TETRACYCLINE S <=1 VANCOMYCIN S 1 THIS IS METHICILLIN RESISTANT STAPH AUREUS Discharge medications: Start taking the following new medications: SULFAMETHOXAZOLE W/TRIMETHOPRI (Bactrim Ds Tab) 1 TABLET TABLET 1 TABLET ORAL TWICE A DAY Qty = 20 No Refills Clindamycin Hcl (Clindamycin 300MG) 300 MG CAPSULE 300 MILLIGRAM ORAL THREE TIMES A DAY Qty = 30 No Refills OXYCODONE HCL (Oxycodone) 5 MG TABLET 5 MILLIGRAM ORAL EVERY 6 HOURS NEEDED as needed for MODERATE TO SEVERE PAIN Qty = 10 No Refills Disposition: Discharged to home in stable and satisfactory condition. To continue with meds as per reconciliation sheet. Follow up: [address] Riley Activity: Cont Current activity Diet: Continue same diet Discharge to: HOME Agency needed? N at 0889
--- OUTSIDE RECORDS SUMMARY | 2017-08-22 12:42 | External Medical Summary Rpt ---
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 09-09-2 228 U/L 73-393 complet 013 ed 09:55 CBC with AUTO DIFF (09-09-2013 09:55) WBC # 09-09-2 9.4 4.8-10. complet Bld 013 K/MM3 8 ed Auto 09:55 RBC # 09-09-2 4.90 4.2-5.4 complet Bld 013 M/mm3 ed Auto 09:55 Hgb 09-09-2 15.8 12.2-16 complet Bld-mCn 013 g/dL .2 ed c 09:55 Hct Fr 47.0 % 37.0-47 complet Bld 013 .0 ed 09:55 MCV RBC 09-09- 96.1 fl 82.2-97 complet 013 .8 ed 09:55 MCH RBC 09-09-2 32.2 pg 27-31.2 complet Qn 013 ed Auto 09:55 MEAN 09-09-2 33.6 31.8-35 complet CORPUSC 013 g/dl .4 ed ULAR 09:55 HGB CONC RDW RBC 09-09-2 14.1 % 11.5-17 complet Auto 013 .5 ed 09:55 Platele 10-29-2 248 142-424 complet t Bld 013 K/mm3 ed Ql 09:55 Manual MEAN 10-29-2 7.4 fl 7.4-10. complet PLATELE 013 4 ed T 09:55 VOLUME Granulo 10-29-2 74.7 % 37.0-80 complet cytes 013 .0 ed Fr Bld 09:55 Auto LYMPH % 10-29-2 21.1 % 10-50.0 complet 013 ed 09:55 Monocyt 10-29-2 3.5 % 1.7-9.3 complet es Fr 013 ed Bld 09:55 Auto Eosinop 10-29-2 0.5 % 0.1-12. complet hil Fr 013 0 ed Bld 09:55 Auto Basophi 10-29-2 0.2 % 0.1-2.0 complet ls Fr 013 ed Bld 09:55 Auto Granulo 10-29-2 7.0 1.8-7.8 complet cytes # 013 K/mm3 ed Bld 09:55 Auto Lymphoc 10-29-2 2.0 0.7-4.5 complet ytes Fr 013 K/mm3 ed Bld 09:55 Auto Monocyt 10-29-2 0.3 0.1-1.0 complet es # 013 K/mm3 ed Bld 09:55 Auto Eosinop 10-29-2 0.1 0.0-0.4 complet hil # 013 K/mm3 ed Bld 09:55 Auto Basophi 10-29-2 0.0 0-0.2 complet ls # 013 K/MM3 ed Bld 09:55 Auto B-HCG Ur Ql (09-09-2013 07:39) B-HCG --2 NEGATIV NEG complet Ur Ql 013 E ed 07:39 URINALYSIS/COMPLETE (09-09-2013 07:39) URINE 09-09-2 YELLOW YELLOW complet COLOR 013 ed 07:39 URINE 09-09-2 CLOUDY CLEAR complet APPEARA 013 ed NCE 07:39 URINE 09-09-2 NEGATIV NEG complet GLUCOSE 013 E ed - 07:39 DIPSTIC K URINE 09-09-2 1+ NEG complet BILIRUB 013 ed IN - 07:39 DIPSTIC K URINE 09-09-2 TRACE NEG complet KETONE 013 mg/dL ed 07:39 URINE 10-29-2 1.015 1.005-1 complet SPECIFI 013 UNK .030 ed C 07:39 GRAVITY URINE 10--2 NEGATIV NEG complet BLOOD 013 E ed 07:39 URINE 10-29-2 6.5 UNK 5.0-8.5 complet PH 013 ed 07:39 URINE 10-29-2 NEGATIV NEG complet PROTEIN 013 E mg/dL ed - 07:39 DIPSTIC K URINE 10--2 1.0 NEG complet UROBILI 013 E.U./dL ed NOGEN - 07:39 DIPSTIC K URINE 10--2 NEGATIV NEG complet NITRATE 013 E ed - 07:39 DIPSTIC K URINE 10--2 2+ NEG complet LEUK 013 ed ESTERAS 07:39 E URINE 10--2 3-5 0 complet RBC 013 rbc/hpf ed 07:39 URINE 10-29-2 5-10 O complet WBC 013 wbc/hpf ed 07:39 URINE 10-29-2 3-5 0-5 complet SQUAMOU 013 #/hpf ed S CELLS 07:39 URINALYSIS/COMPLETE (09-06-2013 12:21) URINE 10-26-2 DK YELLOW complet COLOR 013 YELLOW ed 12:21 URINE 10--2 CLEAR CLEAR complet APPEARA 013 ed NCE 12:21 URINE 10--2 NEGATIV NEG complet GLUCOSE 013 E ed - 12:21 DIPSTIC K URINE 10-26-2 NEGATIV NEG complet BILIRUB 013 E ed IN - 12:21 DIPSTIC K URINE 10-26-2 NEGATIV NEG complet KETONE 013 E mg/dL ed 12:21 URINE 10-26-2 1.010 1.005-1 complet SPECIFI 013 UNK .030 ed C 12:21 GRAVITY URINE 10-26-2 NEGATIV NEG complet BLOOD 013 E ed 12:21 URINE 10-26-2 Greater 5.0-8.5 complet PH 013 than ed 12:21 or equal to 9.0 URINE 10-26-2 2+ NEG complet PROTEIN 013 mg/dL ed - 12:21 DIPSTIC K URINE 10-26-2 1.0 NEG complet UROBILI 013 E.U./dL ed NOGEN - 12:21 DIPSTIC K URINE 10-26-2 NEGATIV NEG complet NITRATE 013 E ed - 12:21 DIPSTIC K URINE 10-26-2 NEGATIV NEG complet LEUK 013 E ed ESTERAS 12:21 E COMPREHENSIVE METABOLIC PANEL (09-06-2013 11:20) Glucose 142 74-106 complet 013 mg/dL ed Bld-mCn 11:20 c BUN 09-06- 11 7-18 complet Bld-mCn 013 mg/dL ed c 11:20 Creat 09-06- 0.9 0.6-1.0 complet SerPl-m 013 mg/dL ed Cnc 11:20 ESTIMAT 09-06- 90 50-200 complet ED 013 ML/MIN ed CREATIN 11:20 INE CLEARAN CE GFR 78 59- complet (ESTIMA 013 ML/MIN ed BRIDGER) 11:20 Sodium 142 136-145 complet SerPl-s 013 mmoL/L ed Cnc 11:20 Potassi 3.5 3.5-5.1 complet um 013 mmoL/L ed SerPl-s 11:20 Cnc Chlorid 105 98-107 complet e 013 mmoL/L ed SerPl-s 11:20 Cnc CO2 25 21.0-32 complet SerPl-s 013 mmoL/L .0 ed Cnc 11:20 Calcium 09-06- 9.1 8.5-10. complet 013 mg/dL 1 ed SerPl-m 11:20 Cnc Prot 09-06- 8.2 6.4-8.2 complet SerPl-m 013 gm/dL ed Cnc 11:20 Albumin 09-06-2 4.2 3.4-5.0 complet 013 gm/dL ed SerPl-m 11:20 Cnc Globuli 09-06-2 4.0 1.3-3.2 complet n 013 gm/dL ed Ser-mCn 11:20 c Albumin 09-06-2 1.1 UNK 1.1-1.8 complet /Glob 013 ed SerPl-m 11:20 Rto Bilirub 09-06-2 0.4 0.2-1.0 complet 013 mg/dL ed SerPl-m 11:20 Cnc AST 09-06- 160 U/L 15-37 complet SerPl-c 013 ed Cnc 11:20 ALT 09-06- 279 U/L 30-65 complet SerPl-c 013 ed Cnc 11:20 ALP 09-06- 21 U/L 50-136 complet SerPl-c 013 ed Cnc 11:20 Amylase SerPl-cCnc (09-06-2013 11:20) Amylase 48 U/L 25-115 complet 013 ed SerPl-c 11:20 Cnc LIPASE (09-06-2013 11:20) LIPASE 123 U/L 73-393 complet 013 ed 11:20 B-HCG Ur Ql (09-06-2013 09:30) B-HCG NEGATIV NEG complet Ur Ql 013 E ed 09:30 STREP SCREEN (RAPID) (07-27-2013 05:00) STREP NEGATIV complet SCREEN 013 E ed (RAPID) 05:00 COMPREHENSIVE METABOLIC PANEL (03-04-2013 21:30) Glucose 03-04- 101 74-106 complet 013 mg/dL ed Bld-mCn 21:30 c BUN 03-04-2 5 mg/dL 7-18 complet Bld-mCn 013 ed c 21:30 Creat 03-04-2 0.7 0.6-1.0 complet SerPl-m 013 mg/dL ed Cnc 21:30 ESTIMAT 23-2 132 50-200 complet ED 013 ML/MIN ed CREATIN 21:30 INE CLEARAN CE GFR 03-04-2 104 59- complet (ESTIMA 013 ML/MIN ed BRIDGER) 21:30 Sodium 23-2 142 136-145 complet SerPl-s 013 mmoL/L ed Cnc 21:30 Potassi 03-04-2 4.4 3.5-5.1 complet um 013 mmoL/L ed SerPl-s 21:30 Cnc Chlorid 23-2 106 98-107 complet e 013 mmoL/L ed SerPl-s 21:30 Cnc CO2 23-2 26 21.0-32 complet SerPl-s 013 mmoL/L .0 ed Cnc 21:30 Calcium 23-2 8.9 8.5-10. complet 013 mg/dL 1 ed SerPl-m 21:30 Cnc Prot 23-2 7.9 6.4-8.2 complet SerPl-m 013 gm/dL ed Cnc 21:30 Albumin 23-2 4.0 3.4-5.0 complet 013 gm/dL ed SerPl-m 21:30 Cnc Globuli 04-23-2 3.9 1.3-3.2 complet n 013 gm/dL ed Ser-mCn 21:30 c Albumin 04-23-2 1.0 UNK 1.1-1.8 complet /Glob 013 ed SerPl-m 21:30 Rto Bilirub 04-23-2 0.4 0.2-1.0 complet 013 mg/dL ed SerPl-m 21:30 Cnc AST 04-23-2 53 U/L 15-37 complet SerPl-c 013 ed Cnc 21:30 ALT 04-23-2 65 U/L 30-65 complet SerPl-c 013 ed Cnc 21:30 ALP 04-23-2 108 U/L 50-136 complet SerPl-c 013 ed Cnc 21:30 Amylase SerPl-cCnc (03-04-2013 21:30) Amylase 04-23-2 47 U/L 25-115 complet 013 ed SerPl-c 21:30 Cnc LIPASE (03-04-2013 21:30) LIPASE 04-23-2 205 U/L 73-393 complet 013 ed 21:30 CBC with AUTO DIFF (03-04-2013 21:30) WBC # 04-23-2 8.4 4.8-10. complet Bld 013 K/MM3 8 ed Auto 21:30 RBC # 04-23-2 4.79 4.2-5.4 complet Bld 013 M/mm3 ed Auto 21:30 Hgb 04-23-2 15.6 12.2-16 complet Bld-mCn 013 g/dL .2 ed c 21:30 Hct Fr 04-23-2 47.4 % 37.0-47 complet Bld 013 .0 ed 21:30 MCV RBC 04-23-2 98.8 fl 82.2-97 complet 013 .8 ed 21:30 MCH RBC 04-23-2 32.5 pg 27-31.2 complet Qn 013 ed Auto 21:30 MEAN 04-23-2 32.9 31.8-35 complet CORPUSC 013 g/dl .4 ed ULAR 21:30 HGB CONC RDW RBC 04-23-2 13.7 % 11.5-17 complet Auto 013 .5 ed 21:30 Platele 04-23-2 235 142-424 complet t Bld 013 K/mm3 ed Ql 21:30 Manual MEAN 04-23-2 6.9 fl 7.4-10. complet PLATELE 013 4 ed T 21:30 VOLUME Granulo 04-23-2 54.6 % 37.0-80 complet cytes 013 .0 ed Fr Bld 21:30 Auto LYMPH % 04-23-2 39.6 % 10-50.0 complet 013 ed 21:30 Monocyt 04-23-2 4.4 % 1.7-9.3 complet es Fr 013 ed Bld 21:30 Auto Eosinop 04-23-2 1.0 % 0.1-12. complet hil Fr 013 0 ed Bld 21:30 Auto Basophi 04-23-2 0.4 % 0.1-2.0 complet ls Fr 013 ed Bld 21:30 Auto Granulo 04-23-2 4.6 1.8-7.8 complet cytes # 013 K/mm3 ed Bld 21:30 Auto Lymphoc 04-23-2 3.3 0.7-4.5 complet ytes Fr 013 K/mm3 ed Bld 21:30 Auto Monocyt 04-23-2 0.4 0.1-1.0 complet es # 013 K/mm3 ed Bld 21:30 Auto Eosinop 04-23-2 0.1 0.0-0.4 complet hil # 013 K/mm3 ed Bld 21:30 Auto Basophi 04-23-2 0.0 0-0.2 complet ls # 013 K/MM3 ed Bld 21:30 Auto B-HCG Ur Ql (03-04-2013 21:30) B-HCG 04-23-2 NEGATIV NEG complet Ur Ql 013 E ed 21:30 URINALYSIS/COMPLETE (03-04-2013 21:30) URINE 04-23-2 YELLOW YELLOW complet COLOR 013 ed 21:30 URINE 04-23-2 CLEAR CLEAR complet APPEARA 013 ed NCE 21:30 URINE 04-23-2 NEGATIV NEG complet GLUCOSE 013 E ed - 21:30 DIPSTIC K URINE 04-23-2 NEGATIV NEG complet BILIRUB 013 E ed IN - 21:30 DIPSTIC K URINE 04-23-2 TRACE NEG complet KETONE 013 mg/dL ed 21:30 URINE 04-23-2 Greater 1.005-1 complet SPECIFI 013 than .030 ed C 21:30 or GRAVITY equal to 1.030 URINE -23-2 TRACE-L NEG complet BLOOD 013 YSED ed 21:30 URINE 04-23-2 6.0 UNK 5.0-8.5 complet PH 013 ed 21:30 URINE 04-23-2 NEGATIV NEG complet PROTEIN 013 E mg/dL ed - 21:30 DIPSTIC K URINE 04-23-2 0.2 NEG complet UROBILI 013 E.U./dL ed NOGEN - 21:30 DIPSTIC K URINE 04-23-2 NEGATIV NEG complet NITRATE 013 E ed - 21:30 DIPSTIC K URINE 04-23-2 NEGATIV NEG complet LEUK 013 E ed ESTERAS 21:30 E URINE 04-23-2 3-5 0 complet RBC 013 rbc/hpf ed 21:30 URINE 04-23-2 3-5 O complet WBC 013 wbc/hpf ed 21:30 URINE 04-23-2 5-10 0-5 complet SQUAMOU 013 #/hpf ed S CELLS 21:30 URINE 04-23-2 1+ O complet BACTERI 013 ed A 21:30 Procedures [place] [address] RADIOLOGY JENN ABDOMEN & 7 PELVIS ASSOCIATE W/CONTRAS S OF NOTH T MATERIAL GROUND A0425 UVALDO UVALDO MILEAGE 7 FAYETTE FAYETTE PER URBAN URBAN STATUTE COGOVT COGOVT MILE AMB A0427 UVALDO UVALDO SERVICE 7 FAYETTE FAYETTE ALS URBAN URBAN EMERGENCY COGOVT COGOVT TRANSPORT LEVEL 1 AMB A0427 UVALDO UVALDO SERVICE 7 [place] FAYETTE ALS URBAN URBAN EMERGENCY [place]SP[place] 1 [place] [address] CENTRAL SADLER ABDOMINAL 7 RADIOLOGY REAL ASSOC TIME W/IMAGE LIMITED GROUND A0425 UVALDO UVALDO MILEAGE 7 FAYETTE FAYETTE PER URBAN URBAN STATUTE COGOVT COGOVT MILE ECG 28536 [place] BRAVO ROUTINE 7 MEDICAL ECG SERV W/LEAST FOUNDATIO 12 LDS N I&[place] [address] CNTRL [place] HILARIO ABDOMEN & 7 RADIOLOGY PELVIS W/[place] [address] SCIENTOLOGY SCIENTOLOGY LIPASE 7 [facility] INJECTION J1170 SCIENTOLOGY SCIENTOLOGY 7 [facility] HYDROMORP [facility] MARCIA UP [place] 4 [place] [address] SCIENTOLOGY SCIENTOLOGY INFUSION 7 [facility] THERAPY/P [facility] ROPHYLAXI S /DX 1ST TO 1 HR THERAPEUT 19980 SCIENTOLOGY SCIENTOLOGY IC 7 [facility] INJECTION [facility] [place] [address] SCIENTOLOGY SCIENTOLOGY ABDOMEN & 7 HEALTH HEALTH PELVIS [facility] W/CONTRAS T MATERIAL BLOOD 55707 SCIENTOLOGY SCIENTOLOGY COUNT 7 [facility] COMPLETE [facility] AUTO&AUTO DIFRNTL WBC LOCM Q9967 SCIENTOLOGY SCIENTOLOGY [phone] [place] [address] MG/ML [facility] IODINE CONCENTRA TION PER ML URNLS DIP 78180 SCIENTOLOGY SCIENTOLOGY [address] [place] [address] STICK/TAB [facility] LET RGNT AUTO W/O MICROSCOP Y IADNA 71298 SCIENTOLOGY SCIENTOLOGY NEISSERIA 7 [facility] GONORRHOE AE AMPLIFIED PROBE TQ SMR PRIM 11095 SCIENTOLOGY SCIENTOLOGY SRC WET 7 [facility] [place] [address] SCIENTOLOGY SCIENTOLOGY SLIDE 7 [facility] SAMPS [facility] SKN/HR/NL S FNGI/ECTO PARASIT IADNA 72800 SCIENTOLOGY SCIENTOLOGY CHLAMYDIA 7 [facility] [place] [address] SCIENTOLOGY SCIENTOLOGY INFUSION 7 [facility] HYDRATION [facility] EACH ADDITIONA L HOUR INJECTION J2405 SCIENTOLOGY SCIENTOLOGY [address] [place] [address] ONDANSETR [facility] ON HCL PER 1 MG COMPREHEN 51909 SCIENTOLOGY SCIENTOLOGY SIVE 7 [facility] METABOL[place] [address] [facility]AL [place] ABDOMEN & 6 RADIOLOGY ARISTEO PELVIS ASSOC W/[place] [address] [place] TRUE CASEY ABDOMEN & 6 MEDICAL PELVIS SERV W/CONTRAS FOUNDATIO T N MATERIAL GROUND A0425 NOÉ UMANZOR MILEAGE 5 AMBULANCE AMBULANCE [place] [address] WHITNEY NATHALIE HEAD/BRAI 5 MEDICAL ALEXANDRE N W/[place] [address] WHITNEY NATHALIE THORACIC 5 MEDICAL ALEXANDRE SPINE W/O IMAGING CONTRAST ASS MATERIAL AMBULANCE A0429 [facility] SERVICE 5 AMBULANCE AMBULANCE BLS [place] [address] WHITNEY NATHALIE CERVICAL 5 MEDICAL ALEXANDRE SPINE W/[place] [address] DIAGNOSTI KELLER TRANSVAGI 5 C IMAGING GRE NAL ALLIANCE US PELVIC 57981 DIAGNOSTI KELLER 5 C IMAGING GRE NONOBSTET ALLIANCE SARAH REAL-TIME IMAGE COMPLETE TOBACCO 57400 [facility] USE 5 [place] CESSATION COMMUNITY COMMUNITY HEALT HEALT INTERMEDI ATE 3-10 MINUTES GONADOTRO 95126 [facility] PIN 5 [place] CAR CHORIONIC COMMUNITY HEALT QUALITATI VE GROUND A0425 ANIBAL ANIBAL MILEAGE 2 CO CO PER AMBULANCE AMBULANCE STATUTE TAXIN TAXIN MILE AMBULANCE A0429 ANIBAL ANIBAL SERVICE 2 CO CO BLS AMBULANCE AMBULANCE EMERGENCY TAXIN TAXIN TRANSPORT CYTP C/V 50770 PATHOLOGY PICKLESIM AUTO THIN 2 & ER JR YARELY LYR CYTOLOGY PREPJ SCR LAB MNL RESCR PHYS CUL BACT 84094 COMBINED COMBINED XCPT 2 PHYSICIAN PHYSICIAN URINE S LA S LA BLOOD/STO OL AEROBIC ISOL IADNA 30535 PATHOLOGY PICKLESIM NEISSERIA 2 & ER JR YARELY CYTOLOGY GONORRHOE LAB AE AMPLIFIED PROBE TQ IADNA 61341 PATHOLOGY PICKLESIM CHLAMYDIA 2 & ER JR YARELY CYTOLOGY TRACHOMAT LAB IS AMPLIFIED PROBE TQ AMBULANCE A0429 ANIBAL ANIBAL SERVICE 2 CO CO BLS AMBULANCE AMBULANCE EMERGENCY TAXIN TAXIN TRANSPORT 46429 [facility] NONSTRESS 2 HEALTH FIDENCIO [facility] A0425 ANIBAL ANIBAL MILEAGE 2 CO CO PER AMBULANCE AMBULANCE STATUTE TAXIN TAXIN MILE RADEX 65569 [facility] CALLES FOREARM 2 8 [facility] VIEWS INC INC RADEX 37953 [facility] CALLES WRIST 8 [facility] COMPLETE INC INC MINIMUM 3 VIEWS URINE 65060 [facility] CALLES 8 [facility] TEST INC INC VIS[place] [address] [facility], 8 [facility] TEST CARE VISUAL CLINIC COLOR CMPRSN [facility] URNLS DIP [address] [facility], 8 [facility] STICK/TAB CARE LET RGNT CLINIC NON-AUTO W/O MICRSCP UNLISTED 43918 DEPT FOR DEPT FOR SPECIAL 8 PUBLIC SOCIAL SERVICE HL SRVS PROCEDURE /REPORT UNLISTED 82704 DEPT FOR DEPT FOR SPECIAL 8 PUBLIC SOCIAL SERVICE HLTH SRVS PROCEDURE /REPORT UNLISTED 97240 DEPT FOR DEPT FOR SPECIAL 8 PUBLIC SOCIAL SERVICE HL SRVS PROCEDURE /REPORT CLOSURE 86.59 M. Oscar GREEN & Moe PASCUAL SUBCUTANE OUS NEC Encounters Encounter Start End Date Code Location Performer Type Date EMERGENCY 71853 [facility] 7 7 EMERGENCY VISIT HIGH PHYSICIAN SEVERITY& S THREAT FUNJ EMERGENCY 68908 [facility] 7 7 EMERGENCY DEPARTMEN T VISIT PHYSICIAN HIGH/URGE S NT SEVERITY EMERGENCY 38294 [facility] 7 7 EMERGENCY DEPARTMEN PHYS PSC T VISIT HIGH/URGE NT SEVERITY HOSPITAL [facility] - 7 7 [facility] T EMERGENC[facility] 15026 SCIENTOLOGY 7 7 [facility]ALTH DEPARTMEN [facility] T VISIT HIGH/URGE NT SEVERITY EMERGENCY 74735 [facility] [place] 7 7 EMERGENCY VISIT PHYS PSC HIGH SEVERITY& THREAT [facility] EMERGENCY 60738 [facility] 6 6 EMERGENCY RYA DEPARTMEN PHYS PSC T VISIT HIGH/URGE NT SEVERITY [facility] [place] - 5 5 [facility] T OFFICE 65540 [facility] 5 5 [place] T VISIT COMMUNITY 10 HEALT MINUTES OFFICE 18641 [facility] 5 5 [place] T NEW 30 COMMUNITY MINUTES HEALT Emergency OLIVIA MORRISON MD (ER) 4 15:59 4 16:09 [facility] Emergency OLIVIA MORRISON MD (ER) 3 07:40 3 11:06 [facility] Emergency OLIVIA Cash MD (ER) 3 09:48 3 12:35 [facility] [place] Emergency OLIVIA Rosa MD (ER) 3 05:00 3 06:[address] [facility] Emergency OLIVIA Mo (ER) 3 20:45 3 21:22 [facility] Emergency OLIVIA Rosa MD (ER) 3 21:06 3 00:[address] [facility] Emergency OLIVIA TAYLOR MD (ER) 3 16:50 3 20:31 [facility] Emergency OLIVIA Dior MD (ER) 3 04:02 3 04:11 [facility] OFFICE 43616 [facility] OUTPATIEN 2 2 HEALTH FIDENCIO T NEW 45 CLINIC OF MINUTES [facility] - 8 8 [facility] OUTPATIEN INC T EMERGENCY 31348 [facility] 8 8 [facility] DEPARTMEN INC T VISIT MODERATE SEVERITY OFFICE 08722 [facility] 8 8 FAMILY BROOKE T VISIT CARE 15 CLINIC MINUTES
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
--- OUTSIDE RECORDS SUMMARY | 2017-08-22 12:44 | External Medical Summary Rpt ---
Author Author , TRAVON Organization TRAVON Address Unknown Phone [email or web address] Team Providers Care Fingernail Former Name Role Phone [facility] Unavailable [facility]available [facility] Unavailable Unavailable SERVICE, [facility] Unavailable Unavailable SERVICE, [facility] Unavailable Unavailable PHYS [...] Unavailable Unavailable [facility]OR Unavailable Unavailable FAVIER, FAVIER Unavailable Unavailable SADLER, SADLER Unavailable Unavailable ELOINA CAR, Unavailable Unavailable ELOINA CAR GLASS LIS, GLASS LIS Unavailable Unavailable GREEN, BROOKE, Unavailable Unavailable GREEN, BROOKE [facility] Unavailable Unavailable [facility], [facility] [place] ARISTEO, DAVENPORT Unavailable Unavailable [facility], [facility] Unavailable Unavailable 734, [facility] 734 BRAVO, BRAVO Unavailable Unavailable [facility] Unavailable Unavailable [facility], [facility] Unavailable Unavailable [facility], [facility] [place] [facility] Unavailable Unavailable [facility] Unavailable Unavailable INC., [facility] Unavailable Unavailable [facility], [facility] Unavailable LAB, [facility] PENCE, PENCE Unavailable Unavailable [facility] Unavailable Unavailable [facility] Unavailable Unavailable [facility] RADHA PRITCHETT, Unavailable Unavailable RADHA PRITCHETT [facility] Unavailable Unavailable OF [facility], [facility] [place] [facility] Unavailable Unavailable TREVER RICH, RICH Unavailable Unavailable TRUE CASEY, TRUE CASEY Unavailable Unavailable JENN, JENN Unavailable Unavailable ARIANNA GRACE Unavailable Unavailable [facility] Unavailable Unavailable OF [place], [facility] [place] Purpose Continuity of Care Document - 11-12-2007 through 2016 Problems Code Diagnosis DOS Provider Status N838 OT 07-18-2017 [facility]FL[facility]M [facility] D/O [facility] OF [facility] FALLOP TUBE & BROAD LIG R1013 EPIGASTRIC 07-17-2017 [facility] PHYSICIANS R112 NAUSEA WITH 07-17-2017 [facility]OMITING [facility] UNSPECIFIED PHYSICIANS R410 DISORIENTAT 05-15-2017 [facility] ION URBAN UNSPECIFIED COGOVT [id number] POISN UNS 05-15-2017 [facility] RX MEDS [...] U[facility]DO F[facility] U[facility]AN [facility] Z136 ENCOUNTER 04-11-2017 [facility] CARDIOVASCU LAR DISORDERS 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 EMERGENCY AND PHYS PSC URETHRITIS N730 ACUTE 03-15-2017 [facility] PARAMETRITI EMERGENCY S AND PHYS PSC PELVIC CELLULITIS N739 FEMALE 03-15-2017 [facility] INFLAMMATOR [place] Y DISEASE UNSPECIFIED R1084 GENERALIZED 03-15-2017 [facility] ABDOMINAL EMERGENCY PAIN PHYS PSC K5900 CONSTIPATIO 06-05-2016 [facility] N RADIOLOGY UNSPECIFIED ASSOC N390 URINARY 06-05-2016 [facility] TRACT EMERGENCY INFECTION PHYS PSC SITE NOT SPECIFIED R1012 LEFT UPPER 06-05-2016 [facility] QUADRANT EMERGENCY PAIN PHYS PSC M542 CERVICALGIA 10-02-2015 [facility] M546 PAIN IN 10-02-2015 [facility] R4182 ALTERED 10-02-2015 [facility] STATUS SERVICE UNSPECIFIED R51 HEADACHE 10-02-2015 [facility] [id number] UNSPECIFIED 10-02-2015 [facility] LOWER BACK IMAGING ASS INITIAL ENCOUNTER [id number] UNSPECIFIED 10-02-2015 [facility] INITIAL SERVICE ENCOUNTER Z043 ENCOUNTER 10-02-2015 [facility]BSERVATION [facility] FOLLOW OTH ACCIDENT N8320 UNSPECIFIED 08-20-2015 [facility] CYSTS INC. 5950 ACUTE 07-08-2015 [facility] 6202 OTHER AND 07-08-2015 [facility] UNSPECIFIED [facility]IAN [facility] CYST HEALT V8523 BODY MASS 07-08-2015 [facility] INDEX [facility] 27.0-27.9 [facility] ADULT [facility] 26339 DIAB W/O 06-14-2015 [facility] COMP TYPE I [facility] [JUV] NOT COMMUNITY STATED HEALT UNCNTRL 86019 CHEST PAIN 06-14-2015 [facility] UNSPECIFIED [facility] 1319 UNSPECIFIED 05-26-2015 [facility] TRICHOMONIA COMM[facility]ITY SIS HEALT 6260 ABSENCE OF 05-13-2015 [facility] MENSTRUATIO [facility] N [facility] V154 PERS HX 01-11-2012 DEPT FOR PSYCHOLOGIC PUBLIC HLTH AL TRAUMA PRS [facility] 51711 THREATENED 01-07-2012 [facility] LABOR AMBULANCE UNSPEC [facility] EPIS CARE 17233 ABDOMINAL 01-07-2012 [facility] OTHER CO SPECIFIED AMBULANCE SITE [facility] 6160 CERVICITIS 12-28-2011 PATHOLOGY & AND CYTOLOGY ENDOCERVICI LAB TIS V220 SUPERVISION 12-28-2011 COMBINED OF NORMAL PHYSICIANS FIRST LA V221 SUPERVISION 12-28-2011 PATHOLOGY & OF OTHER CYTOLOGY NORMAL LAB V745 SCREENING 12-28-2011 PATHOLOGY & EXAMINATION CYTOLOGY FOR LAB VENEREAL DISEASE 76535 THREATENED 12-25-2011 [facility] CL[facility] OF ANTE[facility]UM [place] 74149 MATERNAL 12-25-2011 [facility] DEPENDENCE CLIN[facility] OF ANTE[facility] [place] V237 INSUFFICIEN 12-25-2011 [facility] [place] 45008 CONTUSION 04-08-2008 [facility] 61651 UNSPECIFIED 03-19-2008 [facility] VULVOVAGINI TIS 6259 UNSPEC 03-19-2008 [facility] W/FEMALE GENITAL ORGANS 3128 OTHER 01-11-2008 DEPT FOR SPECIFIED PUBLIC TH DISTURBANCE S OF CONDUCT NEC Medications Na ND Rx Da Fi Fi Am Da Di Ph RX Ph St me C No te ll ll ou ys ag ar # ys at rm s nt no ma ic us Or Da si cy ia de te s n re d RA 64 08 09 28 14 00 KE Ac NI 38 -3 -2 .0 00 NT ti TI 00 0- 9- 00 00 UC ve DI 80 20 20 91 [place] NE 30 17 17 20 7 86 CV 15 S 0 PH MG AR MA TA CY BL ET LL C, DB A CV S PH AR MA CY #0 54 37 PA 59 08 09 14 14 00 KE Ac NT 74 -3 -2 .0 00 NT ti OP 60 0- 9- 00 00 UC ve RA 28 20 20 91 [place] ZO 49 17 17 20 LE 0 87 CV S SO PH D AR DR MA CY 40 LL MG C, TA DB B A CV S PH AR MA CY #0 54 37 ME 00 08 09 9. 3 00 KE Ac TO 09 -3 -2 00 00 NT ti CL 32 0- 9- 0 00 UC ve OP 20 20 20 91 [place] RA 30 17 17 20 OR 5 88 CV DE S PH 10 [...] PH AR MA CY #0 54 37 00 05 05 00 20 10 KR 67 No Ac 09 -0 -2 .0 OG 84 t ti 30 8- 2- 00 ER 60 Av ve 85 20 20 3 ai 25 08 08 PH la 3 AR bl MA e CY L 73 4 TE 51 01 03 00 45 7 KR 67 No Ac RC 67 -2 -2 .0 OG 72 t ti ON 21 6 00 ER 66 Av ve AZ 30 20 20 5 ai OL 40 08 08 PH la E 6 AR bl 0. MA e 4% CY L CR EA 73 M 4 FL 68 01 03 00 3. 3 KR 67 No Ac UC 46 -2 -2 00 OG 72 t ti ON 20 6- 0 ER 66 Av ve AZ 10 20 20 4 ai OL 23 08 08 PH la E 0 AR bl 10 MA e 0 CY MG L TA 73 BL 4 ET FL 68 01 03 00 5. 5 KR 67 No Ac UC 46 -1 -2 00 OG 71 t ti ON 20 0- 4- 0 ER 00 Av ve AZ 10 20 20 9 ai OL 23 08 08 PH la E 0 AR bl 10 MA e 0 CY MG L TA 73 BL 4 ET 53 01 03 00 28 14 KR 67 No Ac 74 -1 -2 .0 OG 71 t ti 60 0- 4- 00 ER 00 Av ve 13 20 20 8 ai 70 08 08 PH la 5 AR bl MA e CY L 73 4 Procedures Procedure [place] [address] RADIOLOGY JENN ABDOMEN & 7 PELVIS ASSOCIATE W/CONTRAS S OF NOTH T MATERIAL GROUND A0425 [facility] U[facility]DO MILEAGE 7 FAYETTE FAYETTE PER URBAN URBAN STATUTE COGOVT COGOVT MILE AMB A0427 U[facility] UVALDO SERVICE 7 FAYETTE FAYETTE ALS URBAN URBAN EMERGENCY COGOVT COGOVT TRANSPORT LEVEL 1 AMB A0427 UVALDO UVALDO SERVICE 7 FAYETTE FAYETTE ALS URBAN URBAN EMERGENCY COGOVT COGOVT TRANSPORT LEVEL 1 GROUND A0425 UVALDO UVALDO MILEAGE 7 FAYETTE FAYETTE PER URBAN [place] [address] [facility] S[facility]LER ABDOMINAL 7 RADIOLOGY REAL ASSOC TIME W/IMAGE LIMITED ECG 40793 [place] BRAVO ROUTINE 7 MEDICAL ECG SERV W/LEAST FOUNDATIO 12 LDS N I&[place] [address] CNTRL [place] ABDOMEN & 7 RADIOLOGY PELVIS W/[place] [address] ZOROASTRIANISM ZOROASTRIANISM LIPASE 7 [facility] INJECTION J1170 ZOROASTRIANISM ZOROASTRIANISM [address] [place] [address] HYDROMORP [facility] MARCIA UP TO 4 MG IADNA 25472 Z[facility]OASTRIANISM ZOROASTRIANISM NEISSERIA 7 [facility] GONORRHOE AE AMPLIFIED PROBE TQ LOCM Q9967 ZOROASTRIANISM ZOROASTRIANISM 300-399 7 [facility] MG/ML [facility] [place] [address] ZOROASTRIANISM ZOROASTRIANISM INFUSION 7 HEALTH HEALTH THERAPY/P [facility] ROPHYLAXI S /DX 1ST TO 1 HR THERAPEUT 93796 [facility]OROASTRIANISM ZOROASTRIANISM IC 7 HEALTH HEALTH INJECTION [facility] [place] [address] ZOROASTRIANISM ZOROASTRIANISM ABDOMEN & 7 HEALTH HEALTH PELVIS [facility] W/[place] [address] ZOROASTRIANISM ZOROASTRIANISM INFUSION 7 HEALTH HEALTH HYDRATION [facility] EACH ADDITIONA L HOUR INJECTION J2405 ZOROASTRIANISM ZOROASTRIANISM 7 HEALTH HEALTH ONDANSETR [facility] ON HCL PER 1 MG COMPREHEN 78533 ZOROASTRIANISM ZOROASTRIANISM SIVE 7 HEALTH HEALTH METABOLIC [facility] PANEL BLOOD 80316 [facility]ASTRIANISM ZOROASTRIANISM COUNT 7 HEALTH HEALTH COMPLETE [facility] AUTO&AUTO DIFRNTL WBC URNLS DIP 61765 ZOROASTRIANISM ZOROASTRIANISM 7 HEALTH HEALTH STICK/TAB [facility] LET RGNT AUTO W/O MICROSCOP Y SMR PRIM 02943 ZOROASTRIANISM ZOROASTRIANISM SRC WET 7 [facility] [place] [address] ZOROASTRIANISM ZOROASTRIANISM SLIDE 7 HEALTH HEALTH SAMPS [facility] SKN/HR/NL S FNGI/ECTO PARASIT IADNA 21357 ZOROASTRIANISM ZOROASTRIANISM CHLAMYDIA 7 [facility] [place] [address] [facility] [place] ABDOMEN & 6 RADIOLOGY ARISTEO PELVIS ASSOC W/[place] [address] [place] TRUE CASEY ABDOMEN & 6 MEDICAL PELVIS SERV [place] [address] [place] [facility]ATHAL[facility] CERVICAL 5 MEDICAL ALEXANDRE SPINE W/O IMAGING CONTRAST ASS MATERIAL GROUND A0425 [facility] PER SERVICE SERVICE STATUTE MILE AMBULANCE A0429 [facility] SERVICE 5 AMBULANCE AMBULANCE BLS SERV[place] [address] [place] [facility]AL[facility] HEAD/BRAI 5 MEDICAL ALEXANDRE N W/[place] [address] [place] NATHALIE THORACIC 5 MEDICAL ALEXANDRE SPINE W/[place] [address] DIAGNOSTI KELLER TRANSVAGI 5 C IMAGING GRE NAL ALLIANCE US PELVIC 46067 DIAGNOSTI KELLER 5 C IMAGING GRE NONOBSTET ALLIANCE SARAH REAL-TIME IMAGE COMPLETE TOBACCO 19645 [facility] USE 5 [facility] INTERMEDI ATE 3-10 MINUTES GONADOTRO 82463 [place] ELOINA PIN 5 [place] CAR [facility] HEALT QUALITATI VE GROUND A0425 [facility] MILEAGE 2 CO CO PER AMBULANCE AMBULANCE STATUTE [facility]AXIN TAXIN MILE AMBULANCE A0429 [facility] ANIBAL SERVICE 2 CO CO BLS AMBULANCE AMBULANCE EMERGENCY TAXIN TAXIN TRANSPORT CUL BACT 96962 COMBINED COMBINED XCPT 2 PHYSICIAN PHYSICIAN URINE S LA S LA BLOOD/STO OL AEROBIC ISOL IADNA 73758 PATHOLOGY PICKLESIM CHLAMYDIA 2 & ER JR YARELY CYTOLOGY TRACHOMAT LAB IS AMPLIFIED PROBE TQ CYTP C/V 76953 PATHOLOGY PICKLESIM AUTO THIN 2 & ER JR YARELY LYR CYTOLOGY PREPJ SCR LAB MNL RESCR PHYS IADNA 20659 PATHOLOGY PICKLESIM NEISSERIA 2 & ER JR YARELY CYTOLOGY GONORRHOE LAB AE AMPLIFIED PROBE TQ GROUND A0425 [facility] ANIBAL MILEAGE 2 CO CO PER AMBULANCE AMBULANCE STATUTE TAXIN TAXIN MILE 90625 [facility] NONSTRESS 2 HEALTH FIDENCIO TEST [facility] AMBULANCE A0429 ANIBAL ANIBAL SERVICE 2 CO CO BLS AMBULANCE AMBULANCE EMERGENCY TAXIN TAXIN TRANSPORT URINE 78705 [facility] CALLES 8 [facility] TEST INC INC VISUAL COLOR CMPRSN METHS RADEX 42098 [facility] CALLES FOREARM 2 8 [facility] VIEWS INC INC RADEX 90925 [facility] CALLES WRIST 8 [facility] COMPLETE INC INC MINIMUM [address] D[address] [facility], 8 [facility]ILY [facility] STICK/TAB CARE LET RGNT CLINIC NON-AUTO W/O MICRSCP URINE 64708 [facility] MONCADA, 8 [facility] TEST CARE VISUAL CLINIC COLOR CMPRSN METHS UNLISTED 00326 DEPT FOR DEPT FOR SPECIAL 8 PUBLIC SOCIAL SERVICE HLTH SRVS PROCEDURE /REPORT UNLISTED 84761 DEPT FOR DEPT FOR SPECIAL 8 PUBLIC SOCIAL SERVICE HLTH SRVS PROCEDURE /REPORT UNLISTED 61848 DEPT FOR DEPT FOR SPECIAL 8 PUBLIC SOCIAL SERVICE HLTH SRVS PROCEDURE /REPORT Encounters Encounter Start End Date Code Location Performer Type Date EMERGENCY 23555 [facility] 7 7 EMERGENCY VISIT HIGH PHYSICIAN SEVERITY& S THREAT FUN EMERGENCY 34089 [facility] 7 7 EMERGENCY DEPARTMEN T VISIT PHYSICIAN HIGH/URGE S NT SEVERITY EMERGENCY 96118 [facility] 7 7 EMERGENCY DEPARTMEN PHYS PSC T VISIT HIGH/URGE NT SEVERITY EMERGENCY 41525 [facility] 7 7 HEALTH DEPARTMEN SAVANNAH T VISIT HIGH/URGE NT SEVERITY HOSPITAL ZORO[facility]ISM - 7 7 HEALTH OUTPATIEN SAVANNAH T EMERGENCY 55931 [facility] DEPT 7 7 EMERGENCY VISIT PHYS PSC HIGH SEVERITY& THREAT FUN EMERGENCY 94595 [facility] 6 6 EMERGENCY RYA DEPARTMEN PHYS PSC T VISIT HIGH/URGE NT SEVERITY [facility]OSP[facility] - 5 5 [facility] OUTPATIEN INC[facility] T OFFICE 92316 [facility] OUT[facility] 5 5 [place] T VISIT COMMUNITY 10 HEALT MINUTES OFFICE 62367 [facility] OUTPATIEN 5 5 [place] T NEW 30 COMMUNITY MINUTES HEALT OFFICE 51883 [facility] 2 2 HEALTH FIDENCIO T NEW 45 [facility] EMERGENCY 89055 [facility] 8 8 [facility] DEPARTMEN INC T VISIT MODERATE SEVERITY HOSPITAL [facility] - 8 8 [facility] T OFFICE [address] [facility] 8 8 FAMILY [facility] T VISIT CARE 15 CLINIC MINUTES
--- OUTSIDE RECORDS SUMMARY | 2017-08-22 12:44 | External Medical Summary Rpt ---
Author Author , TRAVON Organization TRAVON Address Unknown Phone [email or web address] Team Providers Care Tapping Machine Operator Name Role Phone [facility] Unavailable Unavailable [facility] Unavailable Unavailable SERVICE, [facility] Unavailable Unavailable SERVICE, [facility] Unavailable Unavailable PHYS [...] INC [place] ARISTEO, DAVENPORT Unavailable Unavailable [facility], [facility] Unavailable Unavailable 734, [facility] 734 BRAOV, BRAVO Unavailable Unavailable [facility] Unavailable Unavailable [facility], [facility] Unavailable Unavailable [facility], [facility] Unavailable Unavailable [facility] Unavailable Unavailable INC., [facility] Unavailable [facility], [facility] Unavailable Unavailable LAB, [facility] P[facility], PENCE Unavailable Unavailable [facility] Unavailable Unavailable [facility], [facility] Unavailable Unavailable [facility], [facility] RADHA PRITCHETT, Unavailable Unavailable [facility] PR[facility]TT [facility] Unavailable [facility] Unavailable Unavailable TREVER RICH, RICH Unavailable Unavailable TRUE CASEY, TRUE CASEY Unavailable Unavailable JENN, JENN Unavailable Unavailable ARIANNA GRACE Unavailable Unavailable [facility] Unavailable Unavailable OF [place], [facility] [place] Purpose Continuity of Care Document - 11-12-2007 through 2016 Problems Code Diagnosis DOS Provider Status N838 OT 07-18-2017 [facility] D/O [facility] FALLOP TUBE & BROAD LIG R1013 EPIGASTRIC 07-17-2017 [facility] PHYSICIANS R112 NAUSEA WITH 07-17-2017 [facility] VOMITING [facility] UNSPECIFIED PHYSICIANS R410 DISORIENTAT 05-15-2017 [facility] ION URBAN UNSPECIFIED COG[facility]T [id number] POISN UNS 05-15-2017 [facility] RX MEDS [...] ENCOUNTER 04-11-2017 [facility] CARDIOVASCU LAR DISORDERS 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 EMERGENCY AND PHYS PSC URETHRITIS N730 ACUTE 03-15-2017 [facility] PARAMETRITI EMERGENCY S AND PHYS PSC PELVIC CELLULITIS N739 FEMALE 03-15-2017 SPIRITISM [facility] INFLAMMATOR [place] Y DISEASE UNSPECIFIED R1084 GENERALIZED 03-15-2017 [facility] ABDOMINAL EMERGENCY PAIN PHYS PSC K5900 CONSTIPATIO 06-05-2016 [facility] N RADIOLOGY UNSPECIFIED ASSOC N390 URINARY 06-05-2016 [facility] TRACT EMERGENCY INFECTION PHYS PSC SITE NOT SPECIFIED R1012 LEFT UPPER 06-05-2016 [facility] QUADRANT EMERGENCY PAIN PHYS PSC M542 CERVICALGIA 10-02-2015 [facility] M546 PAIN IN 10-02-2015 [facility] R4182 ALTERED 10-02-2015 [facility] STATUS SERVICE UNSPECIFIED R51 HEADACHE 10-02-2015 [facility] [id number] UNSPECIFIED 10-02-2015 [facility] INJURY MEDICAL LOWER BACK IMAGING ASS INITIAL ENCOUNTER J83RYAG UNSPECIFIED 10-02-2015 [facility] INITIAL SERVICE ENCOUNTER Z043 ENCOUNTER 10-02-2015 [facility] EXAM & MEDICAL OBSERVATION IMAGING ASS FOLLOW OTH ACCIDENT N8320 UNSPECIFIED 08-20-2015 [facility] 5950 ACUTE 07-08-2015 [facility] 6202 OTHER AND 07-08-2015 [facility] UNSPECIFIED [facility] OVARIAN [facility] CYST HEALT V8523 BODY MASS 07-08-2015 [facility] INDEX [facility] 27.0-27.9 [facility] ADULT [facility] 80936 DIAB W/O 06-14-2015 [facility] COMP TYPE I [facility] [JUV] NOT COMMUNITY STATED HEALT UNCNTRL 68265 CHEST PAIN 06-14-2015 [facility] UNSPECIFIED [facility] 1319 UNSPECIFIED 05-26-2015 [facility] TRICHOMONIA COMMUNITY SIS HEALT 6260 ABSENCE OF 05-13-2015 [facility] MENSTRUATIO [facility] N [facility] V154 PERS HX 01-11-2012 DEPT FOR PSYCHOLOGIC PUBLIC HLTH AL TRAUMA PRS [facility] 66917 THREATENED 01-07-2012 [facility]URE CO LABOR AMBULANCE UNSPEC [facility] EPIS CARE 53500 ABDOMINAL 01-07-2012 [facility] PAIN OTHER CO SPECIFIED AMBULANCE SITE [facility] 6160 CERVICITIS 12-28-2011 PATHOLOGY & AND CYTOLOGY ENDOCERVICI LAB TIS V220 SUPERVISION 12-28-2011 COMBINED OF NORMAL PHYSICIANS FIRST LA V221 SUPERVISION 12-28-2011 PATHOLOGY & OF OTHER CYTOLOGY NORMAL LAB V745 SCREENING 12-28-2011 PATHOLOGY & EXAMINATION CYTOLOGY FOR LAB VENEREAL DISEASE 64734 THREATENED 12-25-2011 [facility] OF [facility] [place] 84549 MATERNAL 12-25-2011 [facility] DEPENDENCE [facility] OF [facility] [place] V237 INSUFFICIEN 12-25-2011 [facility] [place] 98744 CONTUSION 04-08-2008 [facility] 03383 UNSPECIFIED 03-19-2008 [facility] VULVOVAGINI TIS [...] 91 [place] RA 30 17 17 20 OK 5 88 CV DE S PH 10 [...] Procedure [place] Code [place] [address] RADIOLOGY JENN ABDOMEN & 7 PELVIS ASSOCIATE [...] URBAN [place] [address] [facility] SADLER ABDOMINAL 7 RADIOLOGY REAL ASSOC TIME W/IMAGE LIMITED ECG 22482 [place] ROUTINE 7 MEDICAL ECG SERV W/LEAST FOUNDATIO 12 LDS N I&[place] [address] CNTRL [place] ABDOMEN & 7 RADIOLOGY PELVIS W/[place] [address] SPIRITISM SPIRITISM LIPASE 7 [facility] INJECTION J1170 SPIRITISM SPIRITISM [address] [place] [address] HYDROMORP [facility] MARCIA UP TO 4 MG IADNA 92700 SPIRITISM SPIRITISM NEISSERIA 7 [facility] GONORRHOE AE AMPLIFIED PROBE TQ LOCM Q9967 SPIRITISM SPIRITISM 300-399 7 [facility] MG/ML [facility] [place] [address] SPIRITISM SPIRITISM INFUSION 7 HEALTH HEALTH THERAPY/P [facility] ROPHYLAXI S /DX 1ST TO 1 HR THERAPEUT 34841 SPIRITISM SPIRITISM IC 7 HEALTH HEALTH INJECTION [facility] [place] [address] SPIRITISM SPIRITISM ABDOMEN & 7 HEALTH HEALTH PELVIS [facility] W/[place] [address] SPIRITISM SPIRITISM INFUSION 7 HEALTH HEALTH HYDRATION [facility] EACH ADDITIONA L HOUR INJECTION J2405 SPIRITISM SPIRITISM 7 HEALTH HEALTH ONDANSETR [facility] ON HCL PER 1 MG COMPREHEN 16037 SPIRITISM SPIRITISM SIVE 7 HEALTH HEALTH METABOLIC [facility] PANEL BLOOD 82517 SPIRITISM SPIRITISM COUNT 7 HEALTH HEALTH COMPLETE [facility] AUTO&AUTO DIFRNTL WBC URNLS DIP 00222 SPIRITISM SPIRITISM 7 HEALTH HEALTH STICK/TAB [facility] LET RGNT AUTO W/O MICROSCOP Y SMR PRIM 65488 SPIRITISM SPIRITISM SRC WET 7 [facility] HEALTH MOUNT [facility] [place] [address] SPIRITISM SPIRITISM SLIDE 7 HEALTH HEALTH SAMPS [facility] SKN/HR/NL S FNGI/ECTO PARASIT IADNA 01868 SPIRITISM SPIRITISM CHLAMYDIA 7 [facility] HEALTH [facility] [place] [address] [facility] [place] ABDOMEN & 6 RADIOLOGY ARISTEO PELVIS ASSOC W/[place] [address] [place] TRUE CASEY ABDOMEN & 6 MEDICAL PELVIS SERV [place] [address] [facility] [place] [facility] CERVICAL 5 MEDICAL ALEXANDRE SPINE W/O IMAGING CONTRAST ASS MATERIAL GROUND A0425 [facility]ULANCE PER SERVICE SERVICE STATUTE MILE AMBULANCE A[address] [facility] SERVICE 5 AMBULANCE AMBULANCE BLS [place] [address] [place] N[facility]AL[facility] HEAD/BRAI 5 MEDICAL ALEXANDRE N W/[place] [address] [place] NATHALIE THORACIC 5 MEDICAL ALEXANDRE SPINE W/[place] [address] DIAGNOSTI KELLER TRANSVAGI 5 C IMAGING GRE NAL ALLIANCE US PELVIC 45760 DIAGNOSTI KELLER 5 C IMAGING GRE NONOBSTET ALLIANCE SARAH REAL-TIME IMAGE COMPLETE TOBACCO 94864 [facility] USE 5 [facility] CESSATION [facility] HEALT INTERMEDI ATE 3-10 MINUTES GONADOTRO 23529 MARK ELOINA PIN 5 [facility] CAR CHORIONIC [facility] HEALT QUALITATI VE GROUND A0425 [facility] MILEAGE 2 CO CO PER AMBULANCE AMBULANCE STATUTE TAXIN TAXIN MILE AMBULANCE A0429 [facility] SERVICE 2 CO CO BLS AMBULANCE AMBULANCE EMERGENCY TAXIN TAXIN TRANSPORT CUL BACT 85451 COMBINED COMBINED XCPT 2 PHYSICIAN PHYSICIAN URINE S LA S LA BLOOD/STO OL AEROBIC ISOL IADNA 58088 PATHOLOGY PICKLESIM CHLAMYDIA 2 & ER JR YARELY CYTOLOGY TRACHOMAT LAB IS AMPLIFIED PROBE TQ CYTP C/V 12485 PATHOLOGY PICKLESIM AUTO THIN 2 & ER JR YARELY LYR CYTOLOGY PREPJ SCR LAB MNL RESCR PHYS IADNA 95606 PATHOLOGY PICKLESIM NEISSERIA 2 & ER JR YARELY CYTOLOGY GONORRHOE LAB AE AMPLIFIED PROBE TQ GROUND A0425 [facility] MILEAGE 2 CO CO PER AMBULANCE AMBULANCE STATUTE TAXIN TAXIN MILE 63627 [facility] NONSTRESS 2 HEALTH FIDENCIO TEST [facility] AMBULANCE A0429 [facility] SERVICE 2 CO CO BLS AMBULANCE AMBULANCE EMERGENCY TAXIN TAXIN TRANSPORT URINE 51247 [facility] CALLES 8 [facility] TEST INC INC VISUAL COLOR CMPRSN METHS RADEX 99103 [facility] CALLES FOREARM 2 8 [facility] VIEWS INC INC RADEX 84850 [facility] CALLES WRIST 8 [facility] COMPLETE INC INC MINIMUM [address] D[address] [facility] GREEN, 8 [facility] STICK/TAB CARE LET RGNT CLINIC NON-AUTO W/O MICRSCP URINE 79853 [facility] MONCADA, 8 [facility] TEST CARE VISUAL CLINIC COLOR CMPRSN METHS UNLISTED 14357 DEPT FOR DEPT FOR SPECIAL 8 PUBLIC SOCIAL SERVICE HLTH SRVS PROCEDURE /REPORT UNLISTED 98804 DEPT FOR DEPT FOR SPECIAL 8 PUBLIC SOCIAL SERVICE HLTH SRVS PROCEDURE /REPORT UNLISTED 26164 DEPT FOR DEPT FOR SPECIAL 8 PUBLIC SOCIAL SERVICE HLTH SRVS PROCEDURE /REPORT Encounters Encounter Start End Date Code Location Performer Type Date EMERGENCY 36457 [facility] DE[facility] 7 7 EMERGENCY VISIT HIGH PHYSICIAN SEVERITY& S THREAT FUN EMERGENCY 02765 [facility] 7 7 EMERGENCY DEPARTMEN T VISIT PHYSICIAN HIGH/URGE S NT SEVERITY EMERGENCY 97511 [facility] 7 7 EMERGENCY DEPARTMEN PHYS PSC T VISIT HIGH/URGE NT SEVERITY EMERGENCY 98225 SPIRITISM 7 7 HEALTH DEPARTMEN [facility] T VISIT HIGH/URGE NT SEVERITY HOSPITAL SPIRITISM - 7 7 HEALTH OUTPATIEN [place] T EMERGENCY 89011 [facility] DEPT 7 7 EMERGENCY VISIT PHYS PSC HIGH SEVERITY& THREAT FUN EMERGENCY 67612 [facility] 6 6 EMERGENCY RYA DEPARTMEN PHYS PSC T VISIT HIGH/URGE NT SEVERITY HOSPITAL [facility] - 5 5 [facility]IT[facility] OUTPATIEN INC[facility] T OFFICE 04523 [facility] 5 5 [facility] T VISIT COMMUNITY 10 HEALT MINUTES OFFICE 65115 [facility] 5 5 [facility] T NEW 30 COMMUNITY MINUTES HEALT OFFICE 74890 [facility] 2 2 HEALTH FIDENCIO T NEW [address] [facility] [address] [facility] EMERGENCY 92234 [facility] 8 8 [facility] DEPARTMEN INC T VISIT MODERATE SEVERITY HOSPITAL [facility] - 8 8 [facility] OUTPATIEN INC T OFFICE [address]43[address] [facility] 8 8 FAMILY [facility] T VISIT CARE 15 CLINIC MINUTES
--- OUTSIDE RECORDS SUMMARY | 2017-08-22 12:45 | External Medical Summary Rpt ---
Author Author TRAVON Farah, TRAVON Farah Organization [employer] Address Unknown Phone Unavailable
--- OUTSIDE RECORDS SUMMARY | 2017-08-22 12:45 | External Medical Summary Rpt ---
Demographics Preferred Language Serbian Marital Status Unknown Zoroastrianism Affiliation Unknown Race Unknown Ethnic Group Unknown Author Author TRAVON Address Unknown Phone Immunization Unable to retrieve immunization data due to connection failure with Immunization Registry. Please try again later.
--- OUTSIDE RECORDS SUMMARY | 2017-08-22 12:45 | External Medical Summary Rpt ---
Demographics Preferred Language Icelandic Marital Status Unknown Rastafari Affiliation Unknown Race Unknown Ethnic Group Unknown Author Author TRAVON Address Unknown Phone Immunization Unable to retrieve immunization data due to connection failure with Immunization Registry. Please try again later.
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
--- OUTSIDE RECORDS SUMMARY | 2017-08-22 12:53 | External Medical Summary Rpt ---
Demographics Preferred Language Vietnamese Marital Status Unknown Restorationism Affiliation Unknown Race Unknown Ethnic Group Unknown Author Author [facility] Address Unknown Phone Immunization Unable to retrieve immunization data due to connection failure with Immunization Registry. Please try again later.
--- OUTSIDE RECORDS SUMMARY | 2017-08-22 12:53 | External Medical Summary Rpt ---
Demographics Preferred Language Welsh Marital Status Unknown Nondenominational Affiliation Unknown Race Unknown Ethnic Group Unknown Author Author [facility] Address Unknown Phone Immunization Unable to retrieve immunization data due to connection failure with Immunization Registry. Please try again later.
== END 2017-08-13 12:20 | disposition home or self-care (01) | DRG 571 ==
LOC: ER 22:22 → 2ND 22:36 → ER 23:04 → 2ND 23:04
PROVIDERS: Emergency Medicine; Family Medicine; Surgery
PROC: 0JB70ZZ Excision of Back Subcutaneous Tissue and Fascia, Open Approach (ICD-10-PCS; principal; 2017-08-10 15:00)
DX: L02.31 Cutaneous abscess of buttock (principal); F11.20 Opioid dependence, uncomplicated; Z68.1 Body mass index [BMI] 19.9 or less, adult; B95.62 Methicillin resistant Staphylococcus aureus infection as the cause of diseases classified elsewhere; R63.6 Underweight; F17.210 Nicotine dependence, cigarettes, uncomplicated; F15.10 Other stimulant abuse, uncomplicated; R11.2 Nausea with vomiting, unspecified; E87.6 Hypokalemia
CPT/HCPCS: G0432; J2405; J3370